=== PATIENT | female | born 2000 | race Two or more races ===

== ENCOUNTER 2025-05-17 09:49 | Outpatient (AMB) | payer BC, SELFPAY ==
--- NOTE | 2025-05-17 10:14 | OBCLNT_ITS ---
Vital Signs 05/17/25 10:32 Height 1.6 m Height Method Measured Weight 74.503 kg Weight Measurement Method Standing Scale BMI 29.0 BP 136/84 H Blood Pressure Source Automatic Cuff Blood Pressure Location Right Upper Arm Position Sitting Respiration 17 Pulse 96 Pulse Source Monitor Temp 97.5 F Temp Source Temporal Artery Scan Pulse Oximetry (%) 98 Oxygen Delivery Method Room Air Allergies/Home Meds Allergies & Medications Allergies No Known Allergies Allergy (Verified 05/17/25 10:33) Medication Reconciliation vits no.126-ferrous fum 28 mg iron-folic acid 800 mcg tablet (Classic ) tab PO 05/17/25 [History Confirmed 05/17/25] Intake Visit Data Collection New Patient or Established: New Patient not seen in past 3 years at [facility] (considered New) Reason for Visit:: BEATRIZ Consent obtained for Telemed Visit: No Seen by Clinical Staff ONLY (RN/MA): No Intake Man Required: No Do You Feel Safe at Home: Yes Authorities Contacted: N/A PCP or OBGYN visit in last 3 months: No Hx Now: Yes Are you currently on any form of Control: No Last menstrual period: 03/05/25 Pain Present Currently: No Pain Scale Used: Magana-Mcdowell/Numerical Pain scale:: 0 Smoking Status Smoking Status: Never smoker Questionnaires Covid-19 Vaccine Questionnaire Has patient been vacinated for Covid-19 Have you been vacinated for Covid-19: No PHQ-9 PHQ-2 Over the last 2 weeks, how often have you been bothered by any of the following problems? 1. Little interest or pleasure in doing things: not at all 2. Feeling down, depressed, or hopeless: not at all Total score: 0 PHQ-9 3. Trouble falling or staying asleep, or sleeping too much: Not at all 4. Feeling tired or having little energy: Not at all 5. Poor appetite or overeating: Not at all 6. Feeling bad about yourself - or that you are a failure or have let yourself or your family down: Not at all 7. Trouble concentrating on things, such as reading the newspaper or watching television: Not at all 8. Moving or speaking so slowly that other people could have noticed? - Or the opposite - being so fidgety or restless that you have been moving around a lot more than usual: not at all 9. Thoughts that you would be better off or of hurting yourself in some way: Not at all Total score: 0 If you checked off any problems, how difficult have these problems made it for you to do your work, take care of things at home, or get along with other people?: not difficult at all Source: Developed by Drs. Juan Chirinos, Ashley Thornton, Anjum Conner and colleagues, with an educational jenaro from [employer]. Social History Living Situation History Housing: House Tobacco History Smoking Status: Never smoker Alcohol History Alcohol Intake: Never Domestic Abuse History Do You Feel Safe at Home: Yes History of Present Illness HPI Narrative This is a 24-year-old 1 para 0 for OBI. Last menstrual period March 05, 2025. Estimated due date based on LMP is December 07, 2025. Patient denies any SAB complaints. She is very happy about the . She went to [facility] for her confirmation of . History of a breast lump that was removed June 05. The results were benign no other surgeries. She has a history of anxiety and she has not seen any behavioral health. No complaints at this time denies social habits. Drug screen was negative. Patient hepatitis B is negative. Her hepatitis C is nonreactive. RPR nonreactive. Rubella immune. O+, antibody screen negative, GC and Chlamydia were negative. She has a hemoglobin of 14 hematocrit of 43. Platelets are normal. Urine is negative. Her A1c was 5.1. Her hCG was 9000. 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 Last. March 05, 2025. This gives a due date of December 07, 2025. Patient works. History of a lumpectomy left breast that was benign. She denies any social habits. She has a history of anxiety and she is not on any medication. She denies any signs or symptoms of miscarriage. NIPT and carrier screen today. I will schedule her ultrasound for anatomy scan at [facility]. Discussed SAB precautions. And patient will come back in 4 weeks for OB check Menstrual History Menstrual reliability: definite Flow: normal Menstrual regularity: regular Monthly: Yes Age at menarche: 9 On control pills at conception: No Associated symptoms (LMP): Reports nausea and fatigue OB History : 1 Para: 0 Hx # Pregnancies: 0 Hx Total # of Abortions (Spontaneous & Elective): 0 # of Living Children: 0 Infection History & Risk Evaluation History of STDs: chlamydia HIV risk evaluation: low risk Patient or partner has history of Genital Herpes: No Genetic Screening & History Genetic Screening/Teratology Counseling - Includes patient, baby's father, or anyone in either family with: 1. Patient's age 35 years or older as of estimated date of delivery: No 2. Thalassemia (Northern Irish, Ethiopian, Mediterranean, or Background); MCV less than 80: No 3. Neural Tube Defect (Meningomyelocele, Spina Bifida, or Anencephaly): No 4. Congenital Heart Defect: No 5. Down Syndrome: No 6. Yo-Sachs (Ashkenazi Jehovah'S Witness, Cajun, Wolof Mozambican): No 7. Marcella Disease (Ashkenazi Jehovah'S Witness): No 8. Familial Dysautonomia (Ashkenazi Jehovah'S Witness): No 9. Sickle Cell Disease or Trait (): No 10. Hemophilia or other blood disorders: No 11. Muscular Dystrophy: No 12. Cystic Fibrosis: No 13. [place]'s Chorea: No 14. Mental Retardation/Autism: No 15. Other inherited genetic or chromosomal disorder: No 16. Maternal Metabolic Disorder (EG,TYPE 1 Diabetes, PKU): No 17. Patient or baby's father had a child with defects not listed above: No 18. Recurrent loss or a stillbirth: No 19. Medications (including supplements, vitamins, herbs or otc drugs)/illicit/recreational drugs/alcohol since last menstrual period: No 20. Any other: No Infection History 1. Live with someone with TB or exposed to TB: No 2. Rash or viral illness since last menstrual period: No 3. Hepatitis B,C: No 4. History of STD: chlamydia Other (see comments) Source: [employer] Review of Systems Review of Systems Systems Reviewed: All systems reviewed, normal except as documented Constitutional Constitutional: Reports fatigue Gastrointestinal Gastrointestinal: Reports nausea Endocrine Endocrine: Reports fatigue Exam General Limitations: no limitations General Appearance: alert, in no apparent distress, comfortable, cooperative, healthy appearing, well developed and well groomed Head Head exam: atraumatic, normocephalic and normal inspection Resp Respiratory exam: Present normal lung sounds bilaterally Card Cardiovascular exam: Present regular rate, normal rhythm and normal heart sounds Abdominal Abdominal exam: Present soft and normal bowel sounds Psych Psychiatric exam: Present normal affect and normal mood Office Procedures OB Clinic LOC & Office Proc's Nursing/Assessment Patient Status: Established Patient OB Clinic Nursing Assessment: Medication Reconciliation, Update PMH in EMR and Vital Signs OB Clinic Coordination of Care: Complex Care and Chronic Disease 1-5, Consent,records obtained, informed consent, Education Simp Pt/Fam and 4+ Authorizations needed Special Needs: Heart tones Established Patient Charge Established Patient Point Assignment: 130 Established Patient Point Charge: EP Level 4 (120-155) Assessment & Plan Diagnosis / Problem List (1) Encounter for supervision of normal first , first trimester: Status: Acute Plan Reviewed labs and dates with patient. Discussed SAB precautions. Continue vitamins. Schedule [facility] appointment for anatomy scan. And NIPT and carrier screen today. Return in 3 to 4 weeks OB check Additional Plan Follow Up: 4 Weeks (obc)
[2025-05-17 10:32] VITALS: BP 136/84; PULSE 96; RESP 17; TEMP 36.4; O2SAT 98; BMI 29.0
== END 2025-05-17 12:07 | disposition home or self-care (01) ==
LOC: HODSOBC 09:49
PROVIDERS: PCP Family Medicine; Referring Provider Family Medicine; Supervising Provider Advanced Practice Midwife; Visit Provider Advanced Practice Midwife
DX: Z34.01 Encounter for supervision of normal first pregnancy, first trimester (principal); Z3A.11 11 weeks gestation of pregnancy
CPT/HCPCS: 99214; G0463

== ENCOUNTER 2025-06-08 23:17 | Emergency (ER) | payer BC, SELFPAY ==
[2025-06-08 23:19] VITALS: BMI 27.8
[2025-06-09 00:37] VITALS: BP 130/84; PULSE 106; RESP 18; TEMP 37.1; O2SAT 97
--- NOTE | 2025-06-09 01:31 | PD.EDRME ---
Rapid Medical Screening Exam RME Arrival date/time: 06/08/25 23:17 Chief Complaint: Nausea/Vomiting/Diarrhea Time Seen by Provider: 06/09/25 01:04 Vital signs: Vital Signs Temperature 98.7 F 06/09/25 00:37 Pulse Rate 106 H 06/09/25 00:37 Respiratory Rate 18 06/09/25 00:37 Blood Pressure 130/84 06/09/25 00:37 Pulse Oximetry (%) 97 06/09/25 00:37 Oxygen Delivery Method Room Air 06/09/25 00:37 Vital signs reviewed by provider: Yes RME Narrative: Very pleasant 1 para 0, 24-year-old female presents to the ED with a complaint of nausea and vomiting and inability to keep anything down. She has had some ongoing nausea and vomiting however tonight she feels very dehydrated. She denies fever chills, upper respiratory complaints, pelvic cramping or bleeding, dysuria or frequency. I have ordered labs including lipase and urinalysis, IV fluids, and a dose of pyridoxine 25mg PO. I have greeted and performed a focused initial assessment of this patient. A comprehensive ED assessment and evaluation of the patient, analysis of all test results, and completion of the medical decision making process will be conducted by additional ED providers.
[2025-06-09] MEDS: SODIUM CHLORIDE 0.9% 1000 ML 1,000 ML 999 ML IV ×2 (01:43→03:40)
[2025-06-09 02:07] LABS: Basophils # (Auto) 0.1 Thou/mm3 (0.0-0.2); Basophils % (Auto) 1 % (0-2.5); Eosinophils # (Auto) 0.0 Thou/mm3 (0.0-0.5); Eosinophils % (Auto) 0 % (0-10); Hematocrit 41.6 % (36.0-46.0); Hemoglobin 14.5 g/dL (12.0-16.0); Immature Granulocytes Auto 0.06 Thou/mm3 (0.00-0.00); Lymphocytes # (Auto) 1.6 Thou/mm3 (1.0-4.8); Lymphocytes % (Auto) 13 % (10-50); Mean Corpuscular HGB Conc 34.9 g/dl (31.0-37.0); Mean Corpuscular Hemoglobin 29.1 pg (25.0-35.0); Mean Corpuscular Volume 84 fL (80-100); Monocytes # (Auto) 0.7 Thou/mm3 (0.0-0.8); Monocytes % (Auto) 6 % (0-12); Neutrophils # (Auto) 9.6 Thou/mm3 (1.8-7.7); Neutrophils % (Auto) 80 % (37-80); Nucleated Red Blood Cell # 0.00 Thou/mm3 (0.00-0.00); Nucleated Red Blood Cell % 0 /100 WBC (0); Platelet Count 275 Thou/mm3 (140-440); RDW Standard Deviation 41.5 fL (36.4-46.3); Red Blood Count 4.98 Miln/mm3 (4.00-5.20); White Blood Count 12.0 Thou/mm3 (3.6-11.0)
[2025-06-09 02:32] LABS: Alanine Aminotransferase 127 U/L (10-49); Albumin, Serum 5.0 gm/dL (3.5-5.0); Albumin/Globulin Ratio 1.9 (1.2-2.2); Alkaline Phosphatase 84 U/L (46-116); Anion Gap 16 (7-16); Aspartate Amino Transferase 94 U/L (0-34); BUN/Creatinine Ratio 9 Ratio (12-20); Bilirubin,Total 1.6 mg/dL (0.3-1.2); Blood Urea Nitrogen 6 mg/dL (9-23); Calcium 9.8 mg/dL (8.3-10.6); Calcium (Corrected) 9.8 mg/dL (8.5-10.1); Carbon Dioxide 18.6 mMol/L (20.0-31.0); Chloride 101 mMol/L (98-107); Creatinine (Component) 0.7 mg/dL (0.6-1.3); Estimated Creatinine Clearance 116.2 mL/min (>60); Globulin 2.7 gm/dL (2.3-3.5); Glucose 82 mg/dL (74-106); Lipase 30 U/L (12-53); Magnesium 1.7 mg/dL (1.6-2.6); Osmolality,Calculated 268 (275-295); Phosphorous 3.5 mg/dL (2.4-5.1); Potassium 3.6 mMol/L (3.4-5.1); Sodium 136 mMol/L (136-145); Total Protein 7.7 gm/dL (5.7-8.2); eGFR > 60 See Note
[2025-06-09] MEDS: PYRIDOXINE 50 MG TABLET 25 MG PO (02:44)
[2025-06-09 03:00] LABS: Collection Type, Urine Clean Catch
--- NOTE | 2025-06-09 03:13 | EDNOTE_ITS ---
Nausea/Vomit./Diarrhea-RME/HPI General Chief complaint: Nausea/Vomiting/Diarrhea Stated complaint: VOMITING Time Seen by Provider: 06/09/25 01:04 Arrival date/time: 06/08/25 23:17 RME / HPI RME / HPI Narrative: Very pleasant 1 para 0, 24-year-old female presents to the ED with a complaint of nausea and vomiting and inability to keep anything down. She has had some ongoing nausea and vomiting however tonight she feels very dehydrated. She denies fever chills, upper respiratory complaints, pelvic cramping or bleeding, dysuria or frequency. I have ordered labs including lipase and urinalysis, IV fluids, and a dose of pyridoxine 25mg PO. I have greeted and performed a focused initial assessment of this patient. A comprehensive ED assessment and evaluation of the patient, analysis of all test results, and completion of the medical decision making process will be conducted by additional ED providers. Dr. Nguyen?s Main ED Evaluation: 24yo female EGA 14 weeks presenting with persistent N/V throughout the week, 5-10 episodes/day, No hematemesis or diarrhea. Patient reports epigastric discomfort radiating to the neck. No fever, chills, urgency, or dysuria. No vaginal bleeding or connor of fluid. Baseline frequency. PMH unremarkable. PSH includes lumpectomy. Social history is unremarkable. Allergy to penicillin. Related Data Home Medications ?Medication ?Instructions ?Recorded ?Confirmed vits no.126-ferrous fum tab PO 05/17/2505/17 28 mg iron-folic acid 800 mcg tablet (Classic ) Previous Rx's ?Medication ?Instructions ?Recorded famotidine 40 mg tablet (Pepcid) 40 mg PO QDAY #30 tab s 06/09/25 famotidine 40 mg tablet (Pepcid) 40 mg PO QDAY #30 tab s 06/09/25 metoclopramide HCl 10 mg tablet 10 mg PO Q6H PRN nause a and 06/09/25 (Reglan) vomiting #20 tabs nitrofurantoin 100 mg PO Q12H 5 days #10 ca ps 06/09/25 monohydrate/macrocrystals 100 mg capsule (Macrobid) nitrofurantoin 100 mg PO Q12H 5 days #10 ca ps 06/09/25 monohydrate/macrocrystals 100 mg capsule (Macrobid) promethazine 12.5 mg tablet 12.5 mg PO TID #20 tabs Allergies Allergy/AdvReac Type Severity Reaction Status Date / Time No Known Allergies Allergy Verified 06/08/25 23:18 Review of Systems Review of Systems Systems Reviewed: All systems reviewed, normal except as documented Past Medical History Past Medical History NEUROLOGIC: Negative Neurological Disorders or Seizures CARDIAC: Negative Cardiac Disorders, Congestive Heart Failure, Edema or Cellu litis (SCRATCHES CARLOS ALBERTO LEGS DUE TO DOGS STATED BY PT (HEALING)) RESPIRATORY: Negative Chronic Obstructive Pulmonary Disease (COPD) GASTROINTESTINAL: Negative Gastrointestinal Disorders or Hepatitis GENITOURINARY: Negative Genitourinary Disorders or Renal Disease REPRODUCTIVE: Negative Pelvic Inflammatory Disease or Previous Pregnancies MUSCULOSKELETAL: Negative Musculoskeletal Disorders ENDOCRINE: Negative Endocrine Disorders, Diabetes Mellitus Type 1 or Diabetes Mellitus Type 2 HEMATOLOGIC: Negative Blood Disorders PSYCHO/SOCIAL: Positive Depression (does not take any meds) and Anxiety OTHER HISTORY: Negative Hospitalization, Autoimmune Disease, Shingles, Falls, Blood Transfusions, Blood Transfusion Reaction, Anesthesia Reactions, Chemotherapy, Radiation Therapy, MRSA, VRSA, Chicken Pox, Measles, Mumps, Clostridium Difficile or Cancer Family History FAMILY HISTORY: Positive Family Cardiac Disorders (father (htn)) and Family Surgery (FATHER,mother); Negative Family Psychiatric Problems, Family Respiratory Disorders, Family Gastrointestinal Problems, Family Cancer or Family Anesthesia Reaction Surgical History SURGICAL: Negative Cardiac Surgery, Pacemaker, Endocrine Surgery, Ear Surgery, Abdominal Surgery, Nephrectomy, Neurologic Surgery, Brain Shunt or Mastectomy Social History SMOKING STATUS: Never smoker ED Exam Narrative Physical exam: GENERAL APPEARANCE: alert and oriented x 4, well-developed, well-nourished, nontoxic, resting comfortably, no acute distress VITALS: All vitals were reviewed and the pulse ox is 97% on room air, which is normal according to my interpretation. HEENT: Normocephalic, atraumatic; pupils equal, round, reactive to light; EOMI; mucous membranes pink, moist; oropharynx clear NECK: Supple LUNGS: CTABL; no wheezes, no rales, no rhonchi HEART: Regular rate, regular rhythm; normal S1, S2; no murmurs ABDOMEN: non distended; normal BS; soft, no tenderness, no guarding, no rebound; no masses, no organomegaly, no hernia BACK: no CVA tenderness EXTREMITIES: atraumatic; no edema NEUROLOGIC: awake; alert and oriented x4; cranial nerves II-XII grossly intact; no focal sensory or motor deficits PSYCHIATRIC: appropriate mood and affect SKIN: warm, dry, slightly pale; no rashes Course Quality Measures none Orders Category Date Time Status IV [Insert IV] NOW Care 06/09/25 01:17 Completed CBC Stat Lab 06/09/25 01:26 Completed Comprehensive Metabolic Panel Stat Lab 06/09/25 01:26 Completed Drug Screen,Urine Stat Lab 06/09/25 02:52 Completed Ketone [Beta Hydroxybutyrate] Stat Lab 06/09/25 03:35 Completed Lipase Stat Lab 06/09/25 01:26 Completed Magnesium Stat Lab 06/09/25 01:26 Completed Phosphorous Stat Lab 06/09/25 01:26 Completed Urinalysis, C/S if Indicated Stat Lab 06/09/25 02:52 Completed Urine Culture Stat Lab 06/09/25 02:52 Received Famotidine Inj [Pepcid Inj] Med 06/09/25 03:17 Discontinued 20 mg IVP X1 ONE Metoclopramide Inj [Reglan Inj] Med 06/09/25 03:17 Discontinued 10 mg IVP X1 ONE Pyridoxine [Vitamin B-6] Med 06/09/25 01:28 Discontinued 25 mg PO X1 ONE Sodium Chloride 0.9% 1000 ml [Ns] 1,000 ml Med 06/09/25 01:15 Discontinued IV 999 mls/hr Sodium Chloride 0.9% 1000 ml [Ns] 1,000 ml Med 06/09/25 03:18 Discontinued IV 999 mls/hr cefTRIAXone/D5w 1gm IV premix [Rocephin/D5w 1gm IV Med 06/09/25 04:58 Discontinued premix] 1 gm in 50 ml IV X1 Vital Signs Vital signs: Vital Signs Temperature 98.7 F 06/09/25 00:37 Pulse Rate 106 H 06/09/25 00:37 Respiratory Rate 18 06/09/25 00:37 Blood Pressure 130/84 06/09/25 00:37 Pulse Oximetry (%) 97 06/09/25 00:37 Oxygen Delivery Method Room Air 06/09/25 00:37 Nausea/Vomiting/Diarrhea MDM Narrative MDM Narrative:: Scribe Attestation: 06/09/25 - Starla Hernandez am scribing for and in the presence of Dr. Nguyen. 24yo female EGA 14 weeks presenting with persistent N/V throughout the week, 5-10 episodes/day, No hematemesis or diarrhea. Patient reports epigastric discomfort radiating to the neck. Please see PE findings. Lab markers demonstrate mild acidosis with CO2 of 18, low normal K 3.6, no signs of renal insufficiency, mildly elevated LFTs, Beta Hydroxybutyrate at 3.1, UA demonstrates evidence of infection. Patient aggressively hydrated to correct volume depletion and treated with PPI and antiemetics. Also given Rocephin for UTI. On serial evaluation, patient reports overall improvement and has remained stable. Will treat for hyperemesis gravidarum, give antibiotics for UTI, and recommend for close [facility] follow-up. Patient data External records reviewed:: [facility] previous records (Per chart review, patient has no previous ED visits or admissions to this facility.) Clinical information provided by:: patient Social determinants that could affect healthcare access:: none Patient has the following chronic illnesses:: none How is presenting disease/condition affected by chronic disease/condition?: no chronic disease Evaluation data The following diagnostics were reviewed and interpreted by me:: lab results Lab and/or radiology exams considered but not ordered:: none Interpretation Summary: See MDM. Medications / Prescriptions Medications / Prescriptions considered but not ordered:: none Medication administrations:: Medication Administration History Discontinued Medications Famotidine (Famotidine Inj 10 Mg/Ml Vial 2 Ml) 20 mg IVP X1 ONE Stop: 06/09/25 03:18 Last Admin: 06/09/25 03:43 Dose: 20 mg Documented By: CVL Sodium Chloride (Ns) 1,000 mls @ 999 mls/hr IV .Q1H1M ONE Stop: 06/09/25 02:15 Last Infusion: 06/09/25 02:25 Dose: Infused Documented By: Admin: 06/09/25 01:43 Dose: 999 mls/hr Documented By: CVL Sodium Chloride (Ns) 1,000 mls @ 999 mls/hr IV .Q1H1M ONE Stop: 06/09/25 04:18 Last Infusion: 06/09/25 04:27 Dose: Infused Documented By: Admin: 06/09/25 03:40 Dose: 999 mls/hr Documented By: CVL Ceftriaxone Sodium/Dextrose (Rocephin/D5w 1gm Iv Premix) 1 gm in 50 mls @ 100 mls/hr IV X1 ONE Stop: 06/09/25 05:27 Last Infusion: 06/09/25 05:19 Dose: Infused Documented By: Admin: 06/09/25 05:04 Dose: 100 mls/hr Documented By: CVL Metoclopramide HCl (Metoclopramide Inj 5 Mg/Ml Vial 2 Ml) 10 mg IVP X1 ONE; Protocol Stop: 06/09/25 03:18 Last Admin: 06/09/25 03:42 Dose: 10 mg Documented By: CVL Pyridoxine HCl (Pyridoxine 50 Mg Tablet) 25 mg PO X1 ONE Stop: 06/09/25 01:29 Last Admin: 06/09/25 02:44 Dose: 25 mg Documented By: CVL see above Consultations Consultation(s) initiated? (list below): No Diagnosis Nausea Differential Diagnosis: dehydration and other (hyperemesis gravidarum, vomiting in , electrolyte abnormality) Most likely diagnosis given after review of the tests above:: hyperemesis gravidarum, UTI Admission Indicated Admission indicated?: not indicated Admission Request Was there a request for admission?: No Disposition Plan Disposition Plan: Discharge Discharge Attestation Discharge Attestation: The patient and all family members were given an opportunity to ask questions and understood the discharge instructions. Discharge instructions specifically effects, indications for sooner follow up or return to the emergency department, and the expected course of current diagnosis. Patient condition: Stable Discharge Plan Plan Patient Disposition: HOME (Self Care) Prescriptions/Referrals Prescriptions/Med Rec: New nitrofurantoin monohyd/m-cryst [Macrobid] 100 mg capsule 100 mg PO Q12H 5 Days Qty: 10 0RF Rx Instructions: must administer with a meal/food metoclopramide HCl [Reglan] 10 mg tablet 10 mg PO Q6H PRN (Reason: nausea and vomiting) Qty: 20 0RF famotidine [Pepcid] 40 mg tablet 40 mg PO QDAY Qty: 30 0RF famotidine [Pepcid] 40 mg tablet 40 mg PO QDAY Qty: 30 0RF promethazine 12.5 mg tablet 12.5 mg PO TID Qty: 20 0RF nitrofurantoin monohyd/m-cryst [Macrobid] 100 mg capsule 100 mg PO Q12H 5 Days Qty: 10 0RF Rx Instructions: must administer with a meal/food No Action Classic 28 mg iron- 800 mcg tablet PO Referrals: Dena Arteaga PA-C [Primary Care Provider] - In 1 week Problem List Clinical Impression: Hyperemesis gravidarum before end of 22 week gestation with dehydration Patient/Caregiver Discharge Instructions Discharge Activity: activity as tolerated Education Materials: ED Hyperemesis Gravidarum Additional Instructions: Maintain clear liquid diet x 24 to 48 hours. Medication as directed. Follow-up with [facility] physician within 3 to 5 days return if worsening. Print Language: Turkish Stand Alone Forms: Shruthi Award Info., Patient Portal Info Letter
[2025-06-09 03:16] LABS: Amphetamine/Methamp Scrn,U Negative (Negative); Barbiturate Screen,Urine Negative (Negative); Benzodiazepines Screen,Urine Negative (Negative); Benzoylecgonine Screen, Ur Negative (Negative); Fentanyl Screen,Urine Negative (Negative); Opiate Screen,Urine Negative (Negative); THC Screen,Urine Negative (Negative)
[2025-06-09] MEDS: METOCLOPRAMIDE INJ 5 MG/ML VIAL 2 ML 10 MG IVP (03:42)
[2025-06-09] MEDS: FAMOTIDINE INJ 10 MG/ML VIAL 2 ML 20 MG IVP (03:43)
[2025-06-09 03:46] LABS: Beta Hydroxybutyrate 3.1 mmol/L (<0.6)
[2025-06-09 03:51] LABS: Amorphous Crystals,Urine Present (Absent); Bacteria,Urine 1+; Bilirubin,Urine 1+ (Negative); Blood,Urine Negative (Negative); Clarity,Urine Turbid (Clear/Hazy); Color,Urine Yellow (Lt Yel-Yel); Glucose, Urine Negative (Negative); Ketones,Urine 4+ (Negative); Leukocyte Esterase,Urine Positive (Negative); Nitrite,Urine Negative (Negative); PH,Urine 6.0 (5.0-7.0); Protein,Urine 1+ (Neg - Trace); RBC,Urine < 1 /hpf (0-3); Specific Gravity,Urine 1.027 (1.001-1.035); Squamous Epithelial Cell,Urine 7 /hpf (0-5); Urobilinogen,Urine 6.0 mg/dL (0.0-1.0); WBC,Urine 9 /hpf (0-5)
[2025-06-09 03:52] LABS: Culture Indicated,Urine Yes
[2025-06-09] MEDS: cefTRIAXone/D5w 1gm IV premix 1 GM/50 ML BAG IV (05:04)
[2025-06-09 05:22] VITALS: RESP 16
== END 2025-06-09 05:23 | disposition home or self-care (01) ==
PROVIDERS: Physician Assistant; Emergency Provider Emergency Medicine; PCP Physician Assistant
DX: O21.0 Mild hyperemesis gravidarum (principal); Z3A.22 22 weeks gestation of pregnancy; O99.282 Endocrine, nutritional and metabolic diseases complicating pregnancy, second trimester; E86.0 Dehydration
CPT/HCPCS: 36415; 80053; 80307; 81001; 82010; 83690; 83735; 84100; 85025; 87086; 96361; 96374; 96375; 99283; J0696; J2765; J3490; J7030; A9270

== ENCOUNTER 2025-06-14 13:06 | Outpatient (AMB) | payer BC, SELFPAY ==
[2025-06-14 13:26] VITALS: BP 123/82; PULSE 110; RESP 17; TEMP 36.5; O2SAT 98; BMI 28.8
--- NOTE | 2025-06-14 13:26 | OBCLNT_ITS ---
Vital Signs 06/14/25 13:26 Height 1.6 m Height Method Measured Weight 73.652 kg Weight Measurement Method Standing Scale BMI 28.8 BP 123/82 Blood Pressure Source Automatic Cuff Blood Pressure Location Right Upper Arm Position Sitting Respiration 17 Pulse 110 H Pulse Source Monitor Temp 97.7 F Temp Source Temporal Artery Scan Pulse Oximetry (%) 98 Oxygen Delivery Method Room Air Allergies/Home Meds Allergies & Medications Allergies No Known Allergies Allergy (Verified 06/14/25 13:26) Medication Reconciliation vits no.126-ferrous fum 28 mg iron-folic acid 800 mcg tablet (Classic ) tab PO 05/17/25 [History Confirmed 06/14/25] famotidine 40 mg tablet (Pepcid) 40 mg PO QDAY #30 tabs 06/09/25 [Rx Confirmed 06/14/25] famotidine 40 mg tablet (Pepcid) 40 mg PO QDAY #30 tabs 06/09/25 [Rx Confirmed 06/14/25] metoclopramide HCl 10 mg tablet (Reglan) 10 mg PO Q6H PRN nausea and vomiting #20 tabs 06/09/25 [Rx Confirmed 06/14/25] promethazine 12.5 mg tablet 12.5 mg PO TID #20 tabs 06/09/25 [Rx Confirmed 06/14/25] ondansetron HCl 4 mg tablet 4 mg PO Q8H PRN nausea and vomiting #60 tabs 06/14/25 [Rx] Intake Visit Data Collection New Patient or Established: Established Patient (seen at [facility] within 3 years) Reason for Visit:: [facility] Consent obtained for Telemed Visit: No Seen by Clinical Staff ONLY (RN/MA): No Internet Sales Associate Required: No Do You Feel Safe at Home: Yes Authorities Contacted: N/A PCP or OBGYN visit in last 3 months: Yes Date of Last PCP or OBGYN visit: 06/09/25 Hx Now: Yes Are you currently on any form of Control: No Pain Present Currently: No Pain Scale Used: Magana-Mcdowell/Numerical Pain scale:: 0 Smoking Status Smoking Status: Never smoker Questionnaires Covid-19 Vaccine Questionnaire Has patient been vacinated for Covid-19 Have you been vacinated for Covid-19: No PHQ-9 PHQ-2 Over the last 2 weeks, how often have you been bothered by any of the following problems? 1. Little interest or pleasure in doing things: not at all PHQ-9 8. Moving or speaking so slowly that other people could have noticed? - Or the opposite - being so fidgety or restless that you have been moving around a lot more than usual: not at all Source: Developed by Drs. Juan Chirinos, Ashley Thornton, Anjum Conner and colleagues, with an educational jenaro from [employer]. 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 Last. March 05, 2025. This gives a due date of December 07, 2025. Patient works. History of a lumpectomy left breast that was benign. She denies any social habits. She has a history of anxiety and she is not on any medication. She denies any signs or symptoms of miscarriage. NIPT and carrier screen today. I will schedule her ultrasound for anatomy scan at [facility]. Discussed SAB precautions. And patient will come back in 4 weeks for OB check 06/14/25 -?-?-?-?-?-?-?-?-?-?-?-?- 15w 0d 73.652 kg 123/82 absent unknown 15 155 absent Complains of increased nausea and vomiting. Denies vaginal bleeding. Denies contractions. Denies leaking. Light movement. process sono referral, sab precaution, comfort measure for nausea, zofran 4mg tid. discuss sab precaution, rtc 4 week GREGORY Calculator Estimated Delivery Date Method Current WG Current Estimate 12/06/25 LMP (Certain) 15w 0d Notes Visit Date: 06/14/25 Last Updated by: Betty Garrison CNM NIPT/Carrier screen-, A1: 5.1 Visit Date: 05/17/25 Last Updated by: Betty Garrison CNM 05/17/25: 24 yo . lmp 03/05/25. EDC 12/07/25, O+/abs-, rpr;;nr, rub imm, hbsag-,hiv-,hc-, GC/CT-, Office Procedures OB Clinic LOC & Office Proc's Nursing/Assessment Patient Status: Established Patient OB Clinic Nursing Assessment: Medication Reconciliation, Update PMH in EMR and Vital Signs OB Clinic Coordination of Care: Complex Care and Chronic Disease 1-5, Consent,records obtained, informed consent, Education Simp Pt/Fam, 4+ Authorizations needed, Lab and Imaging orders and Results/Orders obtained Special Needs: Heart tones Established Patient Charge Established Patient Point Assignment: 150 Established Patient Point Charge: EP Level 4 (120-155) Assessment & Plan Diagnosis / Problem List (1) Encounter for supervision of high risk in second trimester, antepartum: Status: Acute Plan Zofran 0.4 3 times daily. Discussed comfort measures for nausea and vomiting. Reviewed labs. Process maternal- medicine referral. Discussed SAB precautions. Return in 4 weeks for recheck Additional Plan Follow Up: 4 Weeks (obc and AFP)
== END 2025-06-14 14:09 | disposition home or self-care (01) ==
LOC: HODSOBC 13:06
PROVIDERS: PCP Family Medicine; Referring Provider Family Medicine; Supervising Provider Advanced Practice Midwife; Visit Provider Advanced Practice Midwife
DX: O09.892 Supervision of other high risk pregnancies, second trimester (principal); Z3A.15 15 weeks gestation of pregnancy; O21.9 Vomiting of pregnancy, unspecified
CPT/HCPCS: 99214; G0463

== ENCOUNTER 2025-06-20 22:53 | Emergency (ER) | payer BC, SELFPAY ==
[2025-06-20 22:54] VITALS: BMI 28.3
[2025-06-20 23:10] VITALS: BP 134/82; PULSE 98; RESP 18; TEMP 37; O2SAT 97
--- NOTE | 2025-06-20 23:15 | XR_ITS ---
Examination: Complete OB ultrasound, greater than 14 weeks, transabdominal Date and time of exam: June 20, 2025, 11:41 PM INDICATION: Pelvic pain beginning 2 days ago Technique: Obstetrical ultrasound images less than 14 weeks performed via transabdominal imaging Findings: A normal shaped single intrauterine gestation is present in the uterus. presentation breech Cardiac motion 150 BPM Placenta anterior grade 1 Umbilical cord insertion seen. Amniotic fluid index 6.9 cm Cervix 6.0 cm Ovaries are obscured by the uterus Ultrasonographic survey of visible and placental structures unremarkable. Amniotic fluid volume appears appropriate for this estimated gestational age. Estimated gestational age 15 weeks 5 days. Estimated weight 129.3 g Impression : Viable intrauterine gestation breech presentation
[2025-06-20 23:39] LABS: Basophils # (Auto) 0.0 Thou/mm3 (0.0-0.2); Basophils % (Auto) 0 % (0-2.5); Eosinophils # (Auto) 0.0 Thou/mm3 (0.0-0.5); Eosinophils % (Auto) 0 % (0-10); Hematocrit 37.3 % (36.0-46.0); Hemoglobin 12.8 g/dL (12.0-16.0); Immature Granulocytes Auto 0.02 Thou/mm3 (0.00-0.00); Lymphocytes # (Auto) 1.5 Thou/mm3 (1.0-4.8); Lymphocytes % (Auto) 14 % (10-50); Mean Corpuscular HGB Conc 34.3 g/dl (31.0-37.0); Mean Corpuscular Hemoglobin 28.8 pg (25.0-35.0); Mean Corpuscular Volume 84 fL (80-100); Monocytes # (Auto) 0.7 Thou/mm3 (0.0-0.8); Monocytes % (Auto) 6 % (0-12); Neutrophils # (Auto) 8.8 Thou/mm3 (1.8-7.7); Neutrophils % (Auto) 80 % (37-80); Nucleated Red Blood Cell # 0.00 Thou/mm3 (0.00-0.00); Nucleated Red Blood Cell % 0 /100 WBC (0); Platelet Count 234 Thou/mm3 (140-440); RDW Standard Deviation 42.1 fL (36.4-46.3); Red Blood Count 4.45 Miln/mm3 (4.00-5.20); White Blood Count 11.0 Thou/mm3 (3.6-11.0)
[2025-06-21 00:07] LABS: Alanine Aminotransferase 95 U/L (10-49); Albumin, Serum 4.4 gm/dL (3.5-5.0); Albumin/Globulin Ratio 1.8 (1.2-2.2); Alkaline Phosphatase 70 U/L (46-116); Anion Gap 12 (7-16); Aspartate Amino Transferase 44 U/L (0-34); BUN/Creatinine Ratio 8 Ratio (12-20); Bilirubin,Total 0.5 mg/dL (0.3-1.2); Blood Urea Nitrogen < 5 mg/dL (9-23); Calcium 10.1 mg/dL (8.3-10.6); Calcium (Corrected) 10.1 mg/dL (8.5-10.1); Carbon Dioxide 21.7 mMol/L (20.0-31.0); Chloride 103 mMol/L (98-107); Creatinine (Component) 0.6 mg/dL (0.6-1.3); Estimated Creatinine Clearance 136.8 mL/min (>60); Globulin 2.4 gm/dL (2.3-3.5); Glucose 90 mg/dL (74-106); Osmolality,Calculated 271 (275-295); Potassium 3.9 mMol/L (3.4-5.1); Sodium 137 mMol/L (136-145); Total Protein 6.8 gm/dL (5.7-8.2); eGFR > 60 See Note
[2025-06-21] MEDS: SODIUM CHLORIDE 0.9% 1000 ML 1,000 ML 999 ML IV (00:21)
[2025-06-21] MEDS: ONDANSETRON INJ 2 MG/ML INJ 2 ML 4 MG IVP (00:21)
[2025-06-21 00:43] LABS: Beta HCG,Quantitative 94383 mIU/mL (<5.0)
[2025-06-21 00:53] LABS: Collection Type, Urine Voided; RBC,Urine 0 /hpf (0-3)
[2025-06-21 00:59] LABS: Amorphous Crystals,Urine Present (Absent); Bacteria,Urine Rare; Bilirubin,Urine Negative (Negative); Blood,Urine Negative (Negative); Clarity,Urine Turbid (Clear/Hazy); Color,Urine Yellow (Lt Yel-Yel); Glucose, Urine Negative (Negative); Ketones,Urine 4+ (Negative); Leukocyte Esterase,Urine Positive (Negative); Nitrite,Urine Negative (Negative); PH,Urine 6.0 (5.0-7.0); Protein,Urine 1+ (Neg - Trace); Specific Gravity,Urine 1.034 (1.001-1.035); Squamous Epithelial Cell,Urine 4 /hpf (0-5); Urobilinogen,Urine 2.0 mg/dL (0.0-1.0); WBC,Urine 13 /hpf (0-5)
--- NOTE | 2025-06-21 01:09 | PRELIM_ITS ---
Obstetric ultrasound. June 20, 2025 2341 hours Clinical history: vaginal bleeding Comparison: No prior study is available for comparison. Findings: There is an gravid uterus measuring 16.3 x 8.0 x 11.0 cm with a live fetus in breech presentation of mean gestational age 15 weeks and 5 days (by biometry). cardiac activity is present at a heart rate of 150 beats per minute. The placenta is anterior in location, maturity grade I. There is no evidence of placenta previa or retroplacental hemorrhage. Amniotic fluid is adequate (SDVP = 6.9 cm). Estimated weight is 129 grams+/- 19 grams. Estimated due date by ultrasound is 12/07/2025. The internal cervical os is closed and the cervical length measures 5.9 cm. Both ovaries are not visualized. Impression: Gravid uterus with a single live fetus in breech presentation of mean gestational age 15 weeks 5 days. Other findings as described above. Report Electronically Signed By: Argenis Newsome 06/21/2025 1:08:44 AM [EST]
--- NOTE | 2025-06-21 01:27 | PD.EDPREG ---
ED OB Contraction Preg RMI/HPI General Chief complaint: Nausea/Vomiting/Diarrhea Stated complaint: VOMITING, 15 WEEKS Time Seen by Provider: 06/20/25 23:13 Source: patient Arrival date/time: 06/20/25 22:53 This is a case of 24-year-old female with no medical history came in in the emergency room due to vomiting 6 times since last night with no abdominal pain no vaginal bleeding no fever no chills no vaginal discharge no urinary symptoms patient is 15 weeks 1 para 0 no checkup. But taking checkup daily persistence of the symptoms this patient decided to start consult here in the emergency room Limitations: no limitations Related Data Home Medications ?Medication ?Instructions ?Recorded ?Confirmed vits no.126-ferrous fum tab PO 05/17/25 06/14/25 28 mg iron-folic acid 800 mcg tablet (Classic ) Previous Rx's ?Medication ?Instructions ?Recorded famotidine 40 mg tablet (Pepcid) 40 mg PO QDAY #30 tabs 06/09/25 famotidine 40 mg tablet (Pepcid) 40 mg PO QDAY #30 tabs 06/09/25 metoclopramide HCl 10 mg tablet 10 mg PO Q6H PRN nausea and 06/09/25 (Reglan) vomiting #20 tabs promethazine 12.5 mg tablet 12.5 mg PO TID #20 tabs 06/09/25 ondansetron HCl 4 mg tablet 4 mg PO Q8H PRN nausea and 06/14/25 vomiting #60 tabs nitrofurantoin 100 mg PO BID 10 days #20 caps 06/21/25 monohydrate/macrocrystals 100 mg capsule (Macrobid) ondansetron 4 mg disintegrating 4 mg PO Q8H PRN nausea and 06/21/25 tablet vomiting #6 tabs Allergies Allergy/AdvReac Type Severity Reaction Status Date / Time Penicillins Allergy Hives Verified 06/20/25 22:54 Review of Systems Review of Systems Systems Reviewed: All systems reviewed, normal except as documented Constitutional Constitutional: Reports system reviewed and no additional complaints, except as documented, Reports as per HPI, Denies chills and Denies fever(s) Cardiovascular Cardiovascular: Reports system reviewed and no additional complaints, except as documented, Reports as per HPI, Denies chest pain and Denies dyspnea Respiratory Respiratory: Reports system reviewed and no additional complaints, except as documented, Denies chest congestion, Denies cough and Denies dyspnea Gastrointestinal Gastrointestinal: Reports system reviewed and no additional complaints, except as documented, Reports as per HPI, Denies abdominal pain, Denies constipation, Denies diarrhea, Reports nausea and Reports vomiting Genitourinary Genitourinary: Reports system reviewed and no additional complaints, except as documented, Denies abnormal menses, Denies abnormal vaginal bleeding, Denies hematuria, Denies menorrhagia, Denies nocturia, Denies pelvic pain, Denies urinary frequency, Denies urinary incontinence, Denies urinary hesitancy and Denies urinary urgency Neurologic Neurologic: Reports system reviewed and no additional complaints, except as documented and Reports as per HPI Past Medical History Past Medical History NEUROLOGIC: Negative Neurological Disorders or Seizures CARDIAC: Negative Cardiac Disorders, Congestive Heart Failure, Edema or Cellulitis (SCRATCHES CARLOS ALBERTO LEGS DUE TO DOGS STATED BY PT (HEALING)) RESPIRATORY: Negative Chronic Obstructive Pulmonary Disease (COPD) GASTROINTESTINAL: Negative Gastrointestinal Disorders or Hepatitis GENITOURINARY: Negative Genitourinary Disorders or Renal Disease REPRODUCTIVE: Negative Pelvic Inflammatory Disease or Previous Pregnancies MUSCULOSKELETAL: Negative Musculoskeletal Disorders ENDOCRINE: Negative Endocrine Disorders, Diabetes Mellitus Type 1 or Diabetes Mellitus Type 2 HEMATOLOGIC: Negative Blood Disorders PSYCHO/SOCIAL: Positive Depression (does not take any meds) and Anxiety OTHER HISTORY: Negative Hospitalization, Autoimmune Disease, Shingles, Falls, Blood Transfusions, Blood Transfusion Reaction, Anesthesia Reactions, Chemotherapy, Radiation Therapy, MRSA, VRSA, Chicken Pox, Measles, Mumps, Clostridium Difficile or Cancer Family History FAMILY HISTORY: Positive Family Cardiac Disorders (father (htn)) and Family Surgery (FATHER,mother); Negative Family Psychiatric Problems, Family Respiratory Disorders, Family Gastrointestinal Problems, Family Cancer or Family Anesthesia Reaction Surgical History SURGICAL: Negative Cardiac Surgery, Pacemaker, Endocrine Surgery, Ear Surgery, Abdominal Surgery, Nephrectomy, Neurologic Surgery, Brain Shunt or Mastectomy Social History SMOKING STATUS: Never smoker ED Exam General Limitations: Present no limitations General appearance: Present alert, in no apparent distress and other (Patient is awake alert oriented not in distress nontoxic looking well-hydrated well-nourished) Head Head exam: Present atraumatic; Absent normocephalic or normal inspection Eye Eye exam: Present normal appearance, PERRL and EOMI ENT ENT exam: Present normal exam, normal oropharynx and mucous membranes moist Neck Neck exam: Present normal inspection, full ROM and trachea midline; Absent tenderness Chest Chest inspection: Present normal inspection and symmetric chest wall rise; Absent tenderness Respiratory Respiratory exam: Present normal lung sounds bilaterally; Absent respiratory distress, wheezes, stridor, accessory muscle use or prolonged expiratory phase Cardiovascular Cardiovascular exam: Present regular rate, normal rhythm and normal heart sounds; Absent bradycardia, tachycardia, irregular rhythm, systolic murmur or diastolic murmur Abdominal Exam Abdominal exam: Present soft, normal bowel sounds and other (Gravid uterus); Absent distention, tenderness, guarding, rebound, rigidity, diminished bowel sounds, hyperactive bowel sounds or hypoactive bowel sounds Extremities Exam Extremities exam: Present normal inspection and full ROM Back Exam Back exam: Present normal inspection and full ROM Neurological Exam Neurological exam: Present alert, oriented X3, CN II-XII intact, normal gait and reflexes normal; Absent motor sensory deficit Psychiatric Psychiatric exam: Present normal affect and normal mood Skin Skin exam: Present warm, dry, intact and normal color Course Quality Measures none Orders Category Date Time Status US OB <= 14 weeks fetus Stat Exams 06/20/25 23:15 Taken ABO/RH Type Stat Lab 06/20/25 23:22 Completed Beta HCG,Quantitative Stat Lab 06/20/25 23:22 Completed CBC Stat Lab 06/20/25 23:22 Completed CMP [Comprehensive Metabolic Panel] Stat Lab 06/20/25 23:22 Completed Urinalysis Stat Lab 06/21/25 00:14 Completed Ondansetron Inj [Zofran Inj] Med 06/20/25 23:15 Discontinued 4 mg IVP X1 ONE Sodium Chloride 0.9% 1000 ml [Ns] 1,000 ml Med 06/20/25 23:15 Discontinued IV 999 mls/hr Vital Signs Vital signs: Vital Signs Temperature 98.6 F 06/20/25 23:10 Pulse Rate 98 06/20/25 23:10 Respiratory Rate 18 06/20/25 23:10 Blood Pressure 134/82 H 06/20/25 23:10 Pulse Oximetry (%) 97 06/20/25 23:10 Oxygen Delivery Method Room Air 06/20/25 23:10 Patient oxygen saturation is 97% in room air OB/Uterine Contractions MDM Narrative MDM Narrative:: This is a case of 24-year-old female with no medical history came in in the emergency room due to vomiting 6 times since last night with no abdominal pain no vaginal bleeding no fever no chills no vaginal discharge no urinary symptoms patient is 15 weeks 1 para 0 no checkup. But taking checkup daily persistence of the symptoms this patient decided to start consult here in the emergency room physical examination patient is awake alert oriented not in distress nontoxic looking well-hydrated well-nourished excellent skin turgor lungs sound is clear no crackles no rales no retraction no stridor heart normal rate regular rhythm no murmur vital signs stable not tachycardic not tachypneic afebrile and nonhypoxic patient have gravid uterus soft normal active bowel sounds no guarding no rebound no rigidity no tenderness the rest of the physical examination and neurological exam is normal and unremarkable blood test showed no leukocytosis no anemia kidney and liver function is normal patient urinalysis showed WBC in the urine suggestive of urinary tract infection patient beta-hCG showed [id number] patient ultrasound showed a 15 weeks with heart tone 150 based on my physical examination and history patient symptoms suggestive of hyperemesis gravidarum patient was given a bolus of normal saline and Zofran which patient condition markedly improved still there is no abdominal pain abdominal exam still normal patient stopped vomiting no recurrence of the symptoms patient will be discharged with Macrobid which is safe for for to be taken for 10 days and Zofran only for 6 tablet for nausea vomiting she will continue to take multivitamins and increase fluid intake Pedialyte for every bouts of vomiting she will also see her OB tomorrow for reevaluation and further evaluation and treatment of hyperemesis gravidarum and check return for any worsening symptoms ER precaution was advised Patient was discharged with comfortable condition walking with stable gait. Patient verbalized no further complains explained diagnosis and answered patient question. Patient is comfortable with the proposed management plan including the need to follow up with his/her primary care physician and any specialist if applicable Discussed patient for any urgent condition or worsening sx, He/She needed to go to emergency room immediately or call 911. Patient acknowledge the responsibility to follow up as instructed and to monitor her/his symptoms. For any persistence of the symptoms for more than 3-5 days return precaution advised. Discussed the result of the test and was given printed discharge instruction Patient data External records reviewed:: [facility] previous records Clinical information provided by:: patient Social determinants that could affect healthcare access:: none Patient has the following chronic illnesses:: None How is presenting disease/condition affected by chronic disease/condition?: no chronic disease Evaluation data The following diagnostics were reviewed and interpreted by me:: lab results and radiology exam(s) Lab and/or radiology exams considered but not ordered:: Reviewed Interpretation Summary: Reviewed Medications / Prescriptions Medications or Prescriptions considered but not ordered:: Given Medication administrations:: Medication Administration History Discontinued Medications Sodium Chloride (Ns) 1,000 mls @ 999 mls/hr IV .Q1H1M ONE Stop: 06/21/25 00:15 Last Admin: 06/21/25 00:21 Dose: 999 mls/hr Documented By: TARYN Ondansetron HCl (Ondansetron Inj 2 Mg/Ml Inj 2 Ml) 4 mg IVP X1 ONE; Protocol Stop: 06/20/25 23:16 Last Admin: 06/21/25 00:21 Dose: 4 mg Documented By: TARYN Given Consultations Consultation(s) initiated? (list below): No Diagnosis OB Contractions Differential Diagnosis: other (Hyperemesis gravidarum urinary tract infection) Most likely diagnosis given after review of the tests above:: Hyperemesis gravidarum urinary tract infection Admission Indicated Admission indicated?: not indicated Explain why admission is indicated or not indicated:: Not indicated Admission Request Was there a request for admission?: No Admission Attestation Admission request attestation: Not indicated Disposition Plan Disposition Plan: Discharge Discharge Attestation Discharge Attestation: The patient and all family members were given an opportunity to ask questions and understood the discharge instructions. Discharge instructions specifically effects, indications for sooner follow up or return to the emergency department, and the expected course of current diagnosis. Patient condition: Stable Discharge Plan Plan Patient Disposition: HOME (Self Care) Patient condition on transfer: Stable Prescriptions/Referrals Prescriptions/Med Rec: New nitrofurantoin monohyd/m-cryst [Macrobid] 100 mg capsule 100 mg PO BID 10 Days Qty: 20 0RF Rx Instructions: must administer with a meal/food ondansetron 4 mg tablet,disintegrating 4 mg PO Q8H PRN (Reason: nausea and vomiting) Qty: 6 0RF No Action Classic 28 mg iron- 800 mcg tablet PO ondansetron HCl 4 mg tablet 4 mg PO Q8H PRN (Reason: nausea and vomiting) Qty: 60 3RF metoclopramide HCl [Reglan] 10 mg tablet 10 mg PO Q6H PRN (Reason: nausea and vomiting) Qty: 20 0RF famotidine [Pepcid] 40 mg tablet 40 mg PO QDAY Qty: 30 0RF famotidine [Pepcid] 40 mg tablet 40 mg PO QDAY Qty: 30 0RF promethazine 12.5 mg tablet 12.5 mg PO TID Qty: 20 0RF Referrals: Riki Song MD [Primary Care Provider] - In 1 week Problem List Clinical Impression: Hyperemesis gravidarum, Urinary tract infection during Patient/Caregiver Discharge Instructions Education Materials: Urinary Tract Infections in Women, ED Hyperemesis Gravidarum Additional Instructions: Follow-up with your primary care physician in 2 days for reevaluation worsening symptoms or any emergent concerns such as vaginal bleeding abdominal pain nausea vomiting fever chills return to the emergency room immediately or call 911 it is very important to 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 Hoffmann
[2025-06-21 01:28] VITALS: BP 128/76; PULSE 76; RESP 18; TEMP 36.7; O2SAT 98
== END 2025-06-21 01:31 | disposition home or self-care (01) ==
PROVIDERS: Nurse Practitioner Family; Emergency Provider Emergency Medicine; PCP Family Medicine
DX: O21.0 Mild hyperemesis gravidarum (principal); Z3A.15 15 weeks gestation of pregnancy; O23.42 Unspecified infection of urinary tract in pregnancy, second trimester; N39.0 Urinary tract infection, site not specified
CPT/HCPCS: 36415; 76801; 80053; 81001; 84702; 85025; 86900; 86901; 96361; 96374; 99283; J2405; J7030

== ENCOUNTER 2025-07-14 13:06 | Outpatient (AMB) | payer BC, SELFPAY ==
[2025-07-14 13:15] VITALS: BP 128/75; PULSE 99; RESP 18; TEMP 36.6; O2SAT 98; BMI 29.2
--- NOTE | 2025-07-14 13:15 | OBCLNT_ITS ---
Vital Signs 07/14/25 13:15 Height 1.6 m Height Method Stated Weight 74.956 kg Weight Measurement Method Standing Scale BMI 29.2 BP 128/75 Blood Pressure Source Automatic Cuff Blood Pressure Location Left Upper Arm Position Sitting Respiration 18 Pulse 99 Pulse Source Monitor Temp 98 F Temp Source Oral Pulse Oximetry (%) 98 Oxygen Delivery Method Room Air Allergies/Home Meds Allergies & Medications Allergies Penicillins Allergy (Verified 07/14/25 13:16) Hives Medication Reconciliation vits no.126-ferrous fum 28 mg iron-folic acid 800 mcg tablet (Classic ) tab PO 05/17/25 [History Confirmed 07/14/25] famotidine 40 mg tablet (Pepcid) 40 mg PO QDAY #30 tabs 06/09/25 [Rx Confirmed 07/14/25] famotidine 40 mg tablet (Pepcid) 40 mg PO QDAY #30 tabs 06/09/25 [Rx Confirmed 07/14/25] metoclopramide HCl 10 mg tablet (Reglan) 10 mg PO Q6H PRN nausea and vomiting #20 tabs 06/09/25 [Rx Confirmed 07/14/25] promethazine 12.5 mg tablet 12.5 mg PO TID #20 tabs 06/09/25 [Rx Confirmed 07/14/25] ondansetron HCl 4 mg tablet 4 mg PO Q8H PRN nausea and vomiting #60 tabs 06/14/25 [Rx Confirmed 07/14/25] ondansetron 4 mg disintegrating tablet 4 mg PO Q8H PRN nausea and vomiting #6 tabs 06/21/25 [Rx Confirmed 07/14/25] Intake Visit Data Collection New Patient or Established: Established Patient (seen at [facility] within 3 years) Reason for Visit:: CARE Seen by Clinical Staff ONLY (RN/MA): No 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 1. Little interest or pleasure in doing things: not at all 2. Feeling down, depressed, or hopeless: not at all Total score: 0 PHQ-9 3. Trouble falling or staying asleep, or sleeping too much: Not at all 4. Feeling tired or having little energy: Not at all 5. Poor appetite or overeating: Not at all 6. Feeling bad about yourself - or that you are a failure or have let yourself or your family down: Not at all 7. Trouble concentrating on things, such as reading the newspaper or watching television: Not at all 8. Moving or speaking so slowly that other people could have noticed? - Or the opposite - being so fidgety or restless that you have been moving around a lot more than usual: not at all 9. Thoughts that you would be better off or of hurting yourself in some way: Not at all Total score: 0 Source: Developed by Drs. Juan Chirinos, Ashley Thornton, Anjum Conner and colleagues, with an educational jenaro from [employer]. 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 Last. March 05, 2025. This gives a due date of December 07, 2025. Patient works. History of a lumpectomy left breast that was benign. She denies any social habits. She has a history of anxiety and she is not on any medication. She denies any signs or symptoms of miscarriage. NIPT and carrier screen today. I will schedule her ultrasound for anatomy scan at [facility]. Discussed SAB precautions. And patient will come back in 4 weeks for OB check 06/14/25 -?-?-?-?-?-?-?-?-?-?-?-?- 15w 0d 73.652 kg 123/82 absent unknown 15 155 absent Complains of increased nausea and vomiting. Denies vaginal bleeding. Denies contractions. Denies leaking. Light movement. process sono referral, sab precaution, comfort measure for nausea, zofran 4mg tid. discuss sab precaution, rtc 4 week 07/14/25 -?-?-?-?-?-?-?-?-?-?-?-?- 19w 2d 74.956 kg 128/75 absent unknown 19 145 active No OB complaints. Fetus is active. Denies leaking ,denies bleeding, denies contractions. No OB o'clock complaint aFP today. Di scussed SAB precautions. Continue prenatals. Increase fluids. MFM pending. Return in 4 weeks OB check GREGORY Calculator Estimated Delivery Date Method Current WG Current Estimate 12/06/25 LMP (Certain) 19w 2d Notes Visit Date: 06/14/25 Last Updated by: Betty Garrison CNM NIPT/Carrier screen-, A1: 5.1 Visit Date: 05/17/25 Last Updated by: Betty Garrison CNM 05/17/25: 24 yo . lmp 03/05/25. EDC 12/07/25, O+/abs-, rpr;;nr, rub imm, hbsag-,hiv-,hc-, GC/CT-, Office Procedures OB Clinic LOC & Office Proc's Nursing/Assessment Patient Status: Established Patient OB Clinic Nursing Assessment: Medication Reconciliation, Update PMH in EMR and Vital Signs OB Clinic Coordination of Care: Complex Care and Chronic Disease 1-5, Consent ,records obtained, informed consent, Education Simp Pt/Fam, Lab and Imaging orders, Results/Orders obtained and Staff clarify orders Special Needs: Heart tones Established Patient Charge Established Patient Point Assignment: 135 Established Patient Point Charge: EP Level 4 (120-155) Assessment & Plan Diagnosis / Problem List (1) Encounter for supervision of high risk in second trimester, antepartum: Status: Acute Plan aFP. Discussed SAB precautions. Discussed labor precautions. MFM appointment pending. Continue prenatals. Return in 4 weeks OB check Additional Plan Follow Up: 4 Weeks (obc)
== END 2025-07-14 13:49 | disposition home or self-care (01) ==
LOC: HODSOBC 13:06
PROVIDERS: Supervising Provider Advanced Practice Midwife; Visit Provider Advanced Practice Midwife
DX: O09.92 Supervision of high risk pregnancy, unspecified, second trimester (principal); Z88.0 Allergy status to penicillin; Z3A.19 19 weeks gestation of pregnancy
CPT/HCPCS: 99214; G0463

== ENCOUNTER 2025-08-20 08:46 | Outpatient (AMB) | payer BC, SELFPAY ==
[2025-08-20 09:07] VITALS: BP 116/83; PULSE 84; RESP 16; TEMP 36.6; O2SAT 98; BMI 29.4
--- NOTE | 2025-08-20 09:07 | AMB.OBVISIT ---
Vital Signs 08/20/25 09:07 Height 1.6 m Height Method Stated Weight 75.296 kg Weight Measurement Method Standing Scale BMI 29.4 BP 116/83 Blood Pressure Source Automatic Cuff Blood Pressure Location Left Upper Arm Position Sitting Respiration 16 Pulse 84 Pulse Source Monitor Temp 97.8 F Temp Source Oral Pulse Oximetry (%) 98 Oxygen Delivery Method Room Air Allergies/Home Meds Allergies & Medications Allergies Penicillins Allergy (Verified 08/20/25 09:11) Hives Medication Reconciliation vits no.126-ferrous fum 28 mg iron-folic acid 800 mcg tablet (Classic ) tab PO 05/17/25 [History Confirmed 08/20/25] Intake Visit Data Collection New Patient or Established: Established Patient (seen at [facility] within 3 years) Reason for Visit:: CARE Seen by Clinical Staff ONLY (RN/MA): No 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 Do You Feel Safe at Home: Yes Authorities Contacted: N/A PCP or OBGYN visit in last 3 months: Yes Hx Now: Yes Are you currently on any form of Control: No Pain Present Currently: No Pain Scale Used: Magana-Mcdowell/Numerical Pain scale:: 0 Smoking Status Smoking Status: Never smoker Immunizations Flu Vaccine in the Last 12 Months: No Flu Vaccine Exclusion Criteria: No Exclusion Criteria Questionnaires Covid-19 Vaccine Questionnaire Has patient been vacinated for Covid-19 Have you been vacinated for Covid-19: No PHQ-9 PHQ-2 Over the last 2 weeks, how often have you been bothered by any of the following problems? 1. Little interest or pleasure in doing things: not at all 2. Feeling down, depressed, or hopeless: not at all Total score: 0 PHQ-9 3. Trouble falling or staying asleep, or sleeping too much: Not at all 4. Feeling tired or having little energy: Not at all 5. Poor appetite or overeating: Not at all 6. Feeling bad about yourself - or that you are a failure or have let yourself or your family down: Not at all 7. Trouble concentrating on things, such as reading the newspaper or watching television: Not at all 8. Moving or speaking so slowly that other people could have noticed? - Or the opposite - being so fidgety or restless that you have been moving around a lot more than usual: not at all 9. Thoughts that you would be better off or of hurting yourself in some way: Not at all Total score: 0 Source: Developed by Drs. Juan Chirinos, Ashley Thornton, Anjum Conner and colleagues, with an educational jenaro from [employer]. 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 Last. March 05, 2025. This gives a due date of December 07, 2025. Patient works. History of a lumpectomy left breast that was benign. She denies any social habits. She has a history of anxiety and she is not on any medication. She denies any signs or symptoms of miscarriage. NIPT and carrier screen today. I will schedule her ultrasound for anatomy scan at [facility]. Discussed SAB precautions. And patient will come back in 4 weeks for OB check 06/14/25 <del>?</del> 15w 0d 73.652 kg 123/82 absent unknown 15 155 absent Complains of increased nausea and vomiting. Denies vaginal bleeding. Denies contractions. Denies leaking. Light movement. process sono referral, sab precaution, comfort measure for nausea, zofran 4mg tid. discuss sab precaution, rtc 4 week 07/14/25 <del>?</del> 19w 2d 74.956 kg 128/75 absent unknown 19 145 active No OB complaints. Fetus is active. Denies leaking ,denies bleeding, denies contractions. No OB o'clock complaint aFP today. Discussed SAB precautions. Continue prenatals. Increase fluids. MFM pending. Return in 4 weeks OB check 08/20/25 <del>?</del> 24w 4d 75.296 kg 116/83 absent unknown 24 154 active no OB complaints, fetus active, no UC/VB/leaking Third trimester labs. Discussed labor precautions. Patient has MFM appointment for next week return in 4 weeks OB GREGORY Calculator Estimated Delivery Date Method Current WG Current Estimate 12/06/25 LMP (Certain) 24w 4d Notes Visit Date: 08/20/25 Last Updated by: Betty Garrison CNM NIPT-. CF/SMA- Visit Date: 06/14/25 Last Updated by: Betty Garrison CNM NIPT/Carrier screen-, A1: 5.1 Visit Date: 05/17/25 Last Updated by: Betty Garrison CNM 05/17/25: 24 yo . lmp 03/05/25. EDC 12/07/25, O+/abs-, rpr;;nr, rub imm, hbsag-,hiv-,hc-, GC/CT-, Office Procedures OBC Clinic LOC & Office Proc's Nursing/Assessment Patient Status: Established Patient OB Clinic Nursing Assessment: Medication Reconciliation, Update PMH in EMR and Vital Signs OB Clinic Coordination of Care: Complex Care and Chronic Disease 1-5, Education Complex Pt/Fam, Consent,records obtained, informed consent, Lab and Imaging orders, Results/Orders obtained and Staff clarify orders Special Needs: Heart tones Established Patient Charge Established Patient Point Assignment: 140 Established Patient Point Charge: EP Level 4 (120-155) Assessment & Plan Diagnosis / Problem List (1) Encounter for supervision of high risk in second trimester, antepartum: Status: Acute Plan Third trimester labs. Review NIPT. Follow-up MFM appointment in a week. Discussed labor precautions. Return in 4 weeks OB check Additional Plan Follow Up: 4 Months (obc) 4 Weeks
== END 2025-08-20 09:43 | disposition home or self-care (01) ==
LOC: HODSOBC 08:46
PROVIDERS: Supervising Provider Advanced Practice Midwife; Visit Provider Advanced Practice Midwife
DX: O09.92 Supervision of high risk pregnancy, unspecified, second trimester (principal); Z3A.24 24 weeks gestation of pregnancy; Z88.0 Allergy status to penicillin
CPT/HCPCS: 99214; G0463

== ENCOUNTER 2025-09-16 10:02 | Outpatient (AMB) | payer BC, SELFPAY ==
[2025-09-16 11:14] VITALS: BP 118/77; PULSE 85; RESP 18; TEMP 36.3; O2SAT 98; BMI 29.2
--- NOTE | 2025-09-16 11:14 | OBCLNT_ITS ---
Vital Signs 09/16/25 11:14 Height 1.6 m Height Method Stated Weight 74.843 kg Weight Measurement Method Standing Scale BMI 29.2 BP 118/77 Blood Pressure Source Automatic Cuff Blood Pressure Location Right Upper Arm Position Sitting Respiration 18 Pulse 85 Pulse Source Monitor Temp 97.3 F Temp Source Temporal Artery Scan Pulse Oximetry (%) 98 Oxygen Delivery Method Room Air Allergies/Home Meds Allergies & Medications Allergies Penicillins Allergy (Verified 09/16/25 11:15) Hives Medication Reconciliation vits no.126-ferrous fum 28 mg iron-folic acid 800 mcg tablet (Classic P renatal) tab PO 05/17/25 [History Confirmed 09/16/25] aspirin 81 mg tablet,delayed release (Adult Aspirin Regimen) 81 mg PO QDAY #60 tabs 09/16/25 [Rx] Immunizations Immunizations Flu Vaccine in the Last 12 Months: No Flu Vaccine Exclusion Criteria: No Exclusion Criteria Care OB Visit Log OB Flowsheet Initial Weight: Not Recorded Date -?-?-?-?-?-?-?-?-?-?-?-?- EGA Weight BP Alb Glu CTX Pres Fundal ht FHR Mov Dilation Station Effacement Hx Notes Visit Note 05/17/25 -?-?-?-?-?-?-?-?-?-?-?-?- 11w 0d 74.503 kg 136/84 absent unknown 11 145 absent 24-year-old 1 para 0 for OBI. Last. March 05, 2025. This gives a due date of December 07, 2025. Patient works. History of a lumpectomy left breast that was benign. She denies any social habits. She has a history of anxiety and she is not on any medication. She denies any signs or symptoms of miscarriage. NIPT and carrier screen today. I will schedule her ultrasound for anatomy scan at [facility]. Discussed SAB precautions. And patient will come back in 4 weeks for OB check 06/14/25 -?-?-?-?-?-?-?-?-?-?-?-?- 15w 0d 73.652 kg 123/82 absent unknown 15 155 absent Complains of increased nausea and vomiting. Denies vaginal bleeding. Denies contractions. Denies leaking. Light movement. process sono referral, sab precaution, comfort measure for nausea, zofran 4mg tid. discuss sab precaution, rtc 4 week 07/14/25 -?-?-?-?-?-?-?-?-?-?-?-?- 19w 2d 74.956 kg 128/75 absent unknown 19 145 active No OB complaints. Fetus is active. Denies leaking ,denies bleeding, denies contractions. No OB o'clock complaint aFP today. Di scussed SAB precautions. Continue prenatals. Increase fluids. MFM pending. Return in 4 weeks OB check 08/20/25 -?-?-?-?-?-?-?-?-?-?-?-?- 24w 4d 75.296 kg 116/83 absent unknown 24 154 active no OB complaints, fetus active, no UC/VB/leaking T hird trimester labs. Discussed labor precautions. Patient has [facility] appointment for next week return in 4 weeks OB 09/16/25 -?-?-?-?-?-?-?-?-?-?-?-?- 28w 3d 74.843 kg 118/77 absent unknown 28 145 active Denies headache. Denies blurred vision, epigastric pain. No visual changes. Reports good movement. Denies leaking, bleeding, contractions. Reviewed third trimester labs with patient they were normal. Reviewed ultrasound from [facility]. Baby is growing in the 99th percentile. Reviewed patient to take low-dose baby aspirin to daily. We also did basic PIH workup and 24-hour protein. Discussed labor precautions. And I discussed diet and weight. Return in 3 weeks OB to Reviewed third trimester lab s with patient they were normal. Reviewed ultrasou nd from [facility]. Baby is growing in the 99th percentile. Reviewed patient to take low-dose baby aspirin to daily. We also did basic PIH workup and 24-hour protein. Discussed labor precautions. And I discussed diet and weight. Return in 3 weeks OB check, f/u [facility] 6 week GREGORY Calculator Estimated Delivery Date Method Current WG Current Estimate 12/06/25 LMP (Certain) 28w 3d Other Estimates 12/10/25 Ultrasound #1 27w 6d 12/06/25 Manual 28w 3d final gregory: . EFW:99% Notes Visit Date: 09/16/25 Last Updated by: Betty Garrison CNM 3rd tri labs wnl, , RPR::NR, A1c: 5.1, 1 hr gtt wnl sono: 08/25; IUP 24w5: EFW 99% Visit Date: 08/20/25 Last Updated by: Betty Garrison CNM NIPT-. CF/SMA- Visit Date: 06/14/25 Last Updated by: Betty Garrison CNM NIPT/Carrier screen-, A1: 5.1 Visit Date: 05/17/25 Last Updated by: Betty Garrison CNM 05/17/25: 24 yo . lmp 03/05/25. EDC 12/07/25, O+/abs-, rpr;;nr, rub imm, hbsag-,hiv-,hc-, GC/CT-, Office Procedures OBC Clinic LOC & Office Proc's Nursing/Assessment Patient Status: Established Patient OB Clinic Nursing Assessment: Medication Reconciliation, Update PMH in EMR and Vital Signs OB Clinic Coordination of Care: Complex Care and Chronic Disease 1-5, Education Complex Pt/Fam, Consent,records obtained, informed consent, Lab and Imaging orders, Results/Orders obtained and Staff clarify orders Special Needs: Heart tones Established Patient Charge Established Patient Point Assignment: 140 Established Patient Point Charge: EP Level 4 (120-155) Assessment & Plan Diagnosis / Problem List (1) Encounter for supervision of high risk in third trimester, antepartum: Status: Acute Plan Patient to start low-dose baby aspirin. I reviewed third trimester labs with patient we also reviewed ultrasound. Patient is aware that the baby is growing on the bigger side. So we discussed diet and weight gain. Walk 40 minutes a day. Avoid sugary foods. Discussed labor precautions. Patient has a follow-up sono in 6 weeks. We did PIH panel with a 24-hour protein and TSH today. Return in 3 weeks OB check Additional Plan Follow Up: 3 Weeks (obc)
== END 2025-09-16 11:17 | disposition home or self-care (01) ==
PROVIDERS: Supervising Provider Advanced Practice Midwife; Visit Provider Advanced Practice Midwife
DX: O09.893 Supervision of other high risk pregnancies, third trimester (principal); O36.63X0 Maternal care for excessive fetal growth, third trimester, not applicable or unspecified; Z3A.28 28 weeks gestation of pregnancy; Z88.0 Allergy status to penicillin
CPT/HCPCS: 99214; G0463

== ENCOUNTER 2025-10-11 11:04 | Outpatient (AMB) | payer BC, SELFPAY ==
[2025-10-11 11:21] VITALS: BP 126/84; PULSE 106; RESP 20; TEMP 36.4; O2SAT 98; BMI 29.4
--- NOTE | 2025-10-11 11:21 | AMB.OBPNC ---
Vital Signs 10/11/25 11:21 Height 1.6 m Height Method Stated Weight 75.353 kg Weight Measurement Method Standing Scale BMI 29.4 BP 126/84 Blood Pressure Source Automatic Cuff Blood Pressure Location Left Upper Arm Position Sitting Respiration 20 Pulse 106 H Pulse Source Monitor Temp 97.5 F Temp Source Oral Pulse Oximetry (%) 98 Oxygen Delivery Method Room Air Allergies/Home Meds Allergies & Medications Allergies Penicillins Allergy (Verified 10/11/25 11:21) Hives Medication Reconciliation vits no.126-ferrous fum 28 mg iron-folic acid 800 mcg tablet (Classic ) tab PO 05/17/25 [History Confirmed 10/11/25] aspirin 81 mg tablet,delayed release (Adult Aspirin Regimen) 81 mg PO QDAY #60 tabs 09/16/25 [Rx Confirmed 10/11/25] Immunizations Immunizations Flu Vaccine in the Last 12 Months: No Flu Vaccine Exclusion Criteria: Refused by Patient Care OB Visit Log OB Flowsheet Initial Weight: Not Recorded Date <del>?</del> EGA Weight BP Alb Glu CTX Pres Fundal ht FHR Mov Dilation Station Effacement Hx Notes Visit Note 05/17/25 <del>?</del> 11w 0d 74.503 kg 136/84 absent unknown 11 145 absent 24-year-old 1 para 0 for OBI. Last. March 05, 2025. This gives a due date of December 07, 2025. Patient works. History of a lumpectomy left breast that was benign. She denies any social habits. She has a history of anxiety and she is not on any medication. She denies any signs or symptoms of miscarriage. NIPT and carrier screen today. I will schedule her ultrasound for anatomy scan at [facility]. Discussed SAB precautions. And patient will come back in 4 weeks for OB check 06/14/25 <del>?</del> 15w 0d 73.652 kg 123/82 absent unknown 15 155 absent Complains of increased nausea and vomiting. Denies vaginal bleeding. Denies contractions. Denies leaking. Light movement. process sono referral, sab precaution, comfort measure for nausea, zofran 4mg tid. discuss sab precaution, rtc 4 week 07/14/25 <del>?</del> 19w 2d 74.956 kg 128/75 absent unknown 19 145 active No OB complaints. Fetus is active. Denies leaking ,denies bleeding, denies contractions. No OB o'clock complaint aFP today. Discussed SAB precautions. Continue prenatals. Increase fluids. MFM pending. Return in 4 weeks OB check 08/20/25 <del>?</del> 24w 4d 75.296 kg 116/83 absent unknown 24 154 active no OB complaints, fetus active, no UC/VB/leaking Third trimester labs. Discussed labor precautions. Patient has [facility] appointment for next week return in 4 weeks OB 09/16/25 <del>?</del> 28w 3d 74.843 kg 118/77 absent unknown 28 145 active Denies headache. Denies blurred vision, epigastric pain. No visual changes. Reports good movement. Denies leaking, bleeding, contractions. Reviewed third trimester labs with patient they were normal. Reviewed ultrasound from [facility]. Baby is growing in the 99th percentile. Reviewed patient to take low-dose baby aspirin to daily. We also did basic PIH workup and 24-hour protein. Discussed labor precautions. And I discussed diet and weight. Return in 3 weeks OB to Reviewed third trimester labs with patient they were normal. Reviewed ultrasound from [facility]. Baby is growing in the 99th percentile. Reviewed patient to take low-dose baby aspirin to daily. We also did basic PIH workup and 24-hour protein. Discussed labor precautions. And I discussed diet and weight. Return in 3 weeks OB check, f/u mfm 6 week 10/11/25 <del>?</del> 32w 0d 75.353 kg 126/84 absent unknown 32 145 active Patient denies headache, blurred vision, epigastric pain. Reports movement. Denies any contractions, leaking or bleeding. Alk phosphatase was elevated to 128. And her AST was 55 and SGPT was 107. TSH normal. Patient states that she feels itching over her entire body Cholestasis labs today. Consult with Dr. Stover regarding AST and ALT. I repeated her CMP added a 24-hour protein and also hepatitis. Discussed labor precautions and return in 2 weeks OB check GREGORY Calculator Estimated Delivery Date Method Current WG Current Estimate 12/06/25 LMP (Certain) 32w 0d Other Estimates 12/10/25 Ultrasound #1 31w 3d 12/06/25 Manual 32w 0d final gregory: 12/06/25. EFW:99% Notes Visit Date: 10/11/25 Last Updated by: Betty Garrison CNM 10/01: BUN/creatine ratio :8, alk phosphatase: 128/H, AST:55, ALT/SGPT: 107,TSH wnl Visit Date: 09/16/25 Last Updated by: Betty Garrison CNM 3rd tri labs wnl, , RPR::NR, A1c: 5.1, 1 hr gtt wnl sono: 08/25; IUP 24w5: EFW 99% Visit Date: 08/20/25 Last Updated by: Betty Garrison CNM NIPT-. CF/SMA- Visit Date: 06/14/25 Last Updated by: Betty Garrison CNM NIPT/Carrier screen-, A1: 5.1 Visit Date: 05/17/25 Last Updated by: Betty Garrison CNM 05/17/25: 24 yo . lmp 03/05/25. EDC 12/07/25, O+/abs-, rpr;;nr, rub imm, hbsag-,hiv-,hc-, GC/CT-, Office Procedures OBC Clinic LOC & Office Proc's Nursing/Assessment Patient Status: Established Patient OB Clinic Nursing Assessment: Medication Reconciliation, Update PMH in EMR and Vital Signs OB Clinic Coordination of Care: Complex Care and Chronic Disease 1-5, Consent,records obtained, informed consent, Education Simp Pt/Fam, 1 Ins Authorization, Lab and Imaging orders, Results/Orders obtained and Staff clarify orders Special Needs: Heart tones Established Patient Charge Established Patient Point Assignment: 150 Established Patient Point Charge: EP Level 4 (120-155) Assessment & Plan Diagnosis / Problem List (1) Encounter for supervision of high risk in third trimester, antepartum: Status: Acute Plan Cholestasis panel. Repeat CMP and PIH panel add 24-hour urine protein and a hepatic panel. Consulted with Dr. Stover regarding labs and ALT and SGPT. Discussed labor precautions. Kick count twice a day. Return in 2 weeks OB check Additional Plan Follow Up: 2 Weeks (obc)
== END 2025-10-11 12:20 | disposition home or self-care (01) ==
LOC: HODSOBC 11:04
PROVIDERS: Supervising Provider Advanced Practice Midwife; Visit Provider Advanced Practice Midwife
DX: O09.893 Supervision of other high risk pregnancies, third trimester (principal); O26.893 Other specified pregnancy related conditions, third trimester; L29.9 Pruritus, unspecified; Z3A.32 32 weeks gestation of pregnancy; Z88.0 Allergy status to penicillin
CPT/HCPCS: 99214; G0463

== ENCOUNTER 2025-10-14 16:18 | Emergency (ER) | payer BC, SELFPAY ==
[2025-10-14 16:30] VITALS: BP 118/75; PULSE 130; RESP 18; TEMP 37.6; O2SAT 99; BMI 28.5
--- NOTE | 2025-10-14 16:35 | XR_ITS ---
EXAMINATION: PA chest single view TECHNIQUE: Upright PA chest single view Date and time: October 14, 2025, 1652 hours, comparison August 25, 2017 INDICATIONS: Coughing fever beginning 2 days ago FINDINGS: Normal heart size Lungs are clear. Intact osseous structures IMPRESSION: No active disease
--- NOTE | 2025-10-14 16:39 | PD.EDRME ---
Rapid Medical Screening Exam RME Arrival date/time: 10/14/25 16:18 24-year-old female presents to the emergency room today for concerns for fever generalized bodyaches and blood in her urine patient reports being approximate 34 weeks Chief Complaint: Fever Vital signs: Vital Signs Temperature 99.6 F 10/14/25 16:30 Pulse Rate 130 H 10/14/25 16:30 Respiratory Rate 18 10/14/25 16:30 Blood Pressure 118/75 10/14/25 16:30 Pulse Oximetry (%) 99 10/14/25 16:30 Oxygen Delivery Method Room Air 10/14/25 16:30 Vital signs reviewed by provider: Yes Exam: Clinically patient is tachycardic but does not appear toxic Clinical Impression: Sepsis protocol initiated Maternal sepsis alert called
--- NOTE | 2025-10-14 16:53 | PC.NURSE ---
RESPONDED TO MATERNAL SEPSIS CALL. ON EVALUATION PT DENIES BLEEDING DENIES LEAKING DENIES CTX PT REPORTED BLOOD IN URINE AND PAIN ON URINATION. PT REPORTED POSITIVE MOVEMENT ABD PALPATED SOFT. FHR OBTAINED VIA DOPPLER 150. PHONE CALL MADE TO MD BULLARD REGARDING PT, STATES TO ALLOW PT TO BE WORKED UP IN ED AND MD BULLARD CAN BE CALLED WITH ANY ADDITIONAL QUESTIONS. MD BULLARD GAVE NO ORDERS FOR ME AT THIS TIME.,
[2025-10-14 17:05] LABS: Lactate (Lactic Acid) 1.2 mMol/L (0.4-2.0)
[2025-10-14 17:06] LABS: Basophils # (Auto) 0.0 Thou/mm3 (0.0-0.2); Basophils % (Auto) 0 % (0-2.5); Eosinophils # (Auto) 0.0 Thou/mm3 (0.0-0.5); Eosinophils % (Auto) 0 % (0-10); Hematocrit 34.5 % (36.0-46.0); Hemoglobin 11.3 g/dL (12.0-16.0); Immature Granulocytes Auto 0.07 Thou/mm3 (0.00-0.00); Lymphocytes # (Auto) 1.0 Thou/mm3 (1.0-4.8); Lymphocytes % (Auto) 11 % (10-50); Mean Corpuscular HGB Conc 32.8 g/dl (31.0-37.0); Mean Corpuscular Hemoglobin 25.8 pg (25.0-35.0); Mean Corpuscular Volume 79 fL (80-100); Monocytes # (Auto) 0.6 Thou/mm3 (0.0-0.8); Monocytes % (Auto) 7 % (0-12); Neutrophils # (Auto) 7.6 Thou/mm3 (1.8-7.7); Neutrophils % (Auto) 82 % (37-80); Nucleated Red Blood Cell # 0.00 Thou/mm3 (0.00-0.00); Nucleated Red Blood Cell % 0 /100 WBC (0); Platelet Count 260 Thou/mm3 (140-440); RDW Standard Deviation 39.3 fL (36.4-46.3); Red Blood Count 4.38 Miln/mm3 (4.00-5.20); White Blood Count 9.3 Thou/mm3 (3.6-11.0)
[2025-10-14] MEDS: SODIUM CHLORIDE 0.9% 1000 ML 1,000 ML 999 ML IV (17:22)
--- NOTE | 2025-10-14 17:22 | PC.NURSE ---
PT COMING IN FROM ED LOBBY WITH C/O FEVER/CHILLS X2 DAYS. PT HAS NO SIGNIFICANT PMH. PT IS 32 WEEKS AND REPORTS THIS IS HER 1ST . . PT STATES HAVING COUGH WITH CLEAR PLHEGM INTERMITENTLY FOR 3 DAYS. PT CONNECTED TO MONITORS AT THIS TIME. PT LAYING ON BED COMFORTABLY WITH NO ACUTE DISTRESS NOTED AT THIS TIME; EQUAL CHEST RISE & FALL NOTED.
--- NOTE | 2025-10-14 17:25 | PD.EDFEVER ---
ED Fever RME/HPI General Chief Complaint: Fever Stated Complaint: FEVER/CHILLS/32 WKS /BLOOD W/URINATION Time Seen by Provider: 10/14/25 17:17 Arrival date/time: 10/14/25 16:18 RME / HPI RME / HPI Narrative: 10/14/25 16:18 24-year-old female presents to the emergency room today for concerns for fever generalized bodyaches and blood in her urine patient reports being approximate 34 weeks . Also complained of fever, this been going since yesterday, associated with sore throat body aches joint pains, severity moderate. Maternal sepsis alert was initiated right away. Exam: Clinically patient is tachycardic but does not appear toxic Impression: Sepsis protocol initiated Maternal sepsis alert called Related Data Home Medications ?Medication ?Instructions ?Recorded ?Confirmed vits no.126-ferrous fum tab PO 05/17/25 10/11/25 28 mg iron-folic acid 800 mcg tablet (Classic ) Previous Rx's ?Medication ?Instructions ?Recorded aspirin 81 mg tablet,delayed 81 mg PO QDAY #60 tabs 09/16/25 release (Adult Aspirin Regimen) cephalexin 500 mg capsule 500 mg PO TID 7 days #21 caps 10/14/25 Allergies Allergy/AdvReac Type Severity Reaction Status Date / Time Penicillins Allergy Hives Verified 10/14/25 16:24 Review of Systems Review of Systems Narrative Review of Systems: Review of system reviewed and within normal limits except mentioned in HPI Physical Exam Narrative Physical exam: VITAL SIGNS: Reviewed. GENERAL APPEARANCE: Alert and interactive, follows commands, no acute distress, HEAD AND FACE: Non-traumatic. ENT: PERRL, pink conjunctivitis, eyelid no trauma, Mucous membrane moist. NECK: Supple, nontender, no nuchal rigidity. CHEST: No tenderness, no crepitus, no paradoxical movement, no retractions. LUNGS: Clear, well ventilated, symmetric, no rales, no wheezing, no ronchi, no stridor, good breath sounds bilaterally. HEART: Regular rate, regular rhythm, no murmur, no gallops. ABDOMEN: Soft, positive bowel sounds, nondistended, no guarding, gravid abdomen, no rebound, no masses, RECTAL: Deferred. GENITAL: Deferred. NEUROLOGICAL: Gross motor function intact sensory function intact, Appropriate for age. MUSCULOSKELETAL: low back nontender, full range of motion. EXTREMITIES: Nontender, full range of motion. SKIN: Color pink, dry, no rash, no lacerations, no abrasions, no contusions. LYMPHATICS: Deferred. Course Quality Measures none Orders Category Date Time Status Bedside COVID-19 Antigen Test NOW Care 10/14/25 16:35 Active Bedside Influenza A&B Antigen Test NOW Care 10/14/25 16:35 Completed Insert IV NOW Care 10/14/25 16:39 Active XR chest 1V portable Stat Exams 10/14/25 16:35 Completed Beta HCG,Quantitative Stat Lab 10/14/25 16:45 Completed Blood Culture (Lab) Stat Lab 10/14/25 16:50 Received CBC Stat Lab 10/14/25 16:45 Completed Comprehensive Metabolic Panel Stat Lab 10/14/25 16:45 Completed Lactate (Lactic Acid) Stat Lab 10/14/25 16:45 Completed Procalcitonin Stat Lab 10/14/25 16:45 Completed Urinalysis Stat Lab 10/14/25 19:26 Completed Urine Culture Stat Lab 10/14/25 19:26 Received Acetaminophen Tab [Tylenol ES Tab] Med 10/14/25 17:25 Discontinued 500 mg PO X1 ONE Sodium Chloride 0.9% 1000 ml [Ns] 1,000 ml Med 10/14/25 16:35 Discontinued IV 999 mls/hr cefTRIAXone/D5w 1gm IV premix [Rocephin/D5w 1gm IV Med 10/14/25 20:15 Active premix] 1 gm in 50 ml IV X1 Vital Signs Vital signs: Vital Signs Temperature 99.6 F 10/14/25 16:30 Pulse Rate 130 H 10/14/25 16:30 Respiratory Rate 18 10/14/25 16:30 Blood Pressure 118/75 10/14/25 16:30 Pulse Oximetry (%) 99 10/14/25 16:30 Oxygen Delivery Method Room Air 10/14/25 16:30 Fever MDM Narrative MDM Narrative:: 24-year-old female presents to the emergency room today for concerns for fever generalized bodyaches and blood in her urine patient reports being approximate 34 weeks . Also complained of fever, this been going since yesterday, associated with sore throat body aches joint pains, severity moderate. Maternal sepsis alert was initiated right away. CBC did not show any leukocytosis. Urinalysis positive for UTI. Chest x-ray came back with no pneumonia. Results discussed with the patient. Patient was given IV fluids, IV ceftriaxone. Patient was also referred to labor and delivery after patient was discharged in the emergency room Patient data External records reviewed:: None Clinical information provided by:: patient Social determinants that could affect healthcare access:: none Patient has the following chronic illnesses:: None How is presenting disease/condition affected by chronic disease/condition?: no chronic disease Evaluation data The following diagnostics were reviewed and interpreted by me:: lab results and radiology exam(s) Lab and/or radiology exams considered but not ordered:: None Interpretation Summary: See above Medications / Prescriptions Medications or Prescriptions considered but not ordered:: None Medication administrations:: Medication Administration History Ceftriaxone Sodium/Dextrose (Rocephin/D5w 1gm Iv Premix) 1 gm in 50 mls @ 100 mls/hr IV X1 ONE Stop: 10/14/25 20:44 Discontinued Medications Acetaminophen (Acetaminophen 500 Mg Tablet) 500 mg PO X1 ONE Stop: 10/14/25 17:26 Last Admin: 10/14/25 17:29 Dose: 500 mg Documented By: PINKY Sodium Chloride (Ns) 1,000 mls @ 999 mls/hr IV .Q1H1M ONE Stop: 10/14/25 17:35 Last Infusion: 10/14/25 18:35 Dose: Infused Documented By: Admin: 10/14/25 17:22 Dose: 999 mls/hr Documented By: PINKY See above Consultations Consultation(s) initiated? (list below): No Diagnosis Fever Differential Diagnosis: fever of unknown origin and viral infection Most likely diagnosis given after review of the tests above:: UTI, Admission Indicated Admission indicated?: not indicated Admission Request Was there a request for admission?: No Disposition Plan Disposition Plan: Discharge Discharge Attestation Discharge Attestation: The patient and all family members were given an opportunity to ask questions and understood the discharge instructions. Discharge instructions specifically effects, indications for sooner follow up or return to the emergency department, and the expected course of current diagnosis. Patient condition: Stable Discharge Plan Plan Patient Disposition: HOME (Self Care) Discharge Disposition comment: stable Prescriptions/Referrals Prescriptions/Med Rec: New cephalexin 500 mg capsule 500 mg PO TID 7 Days Qty: 21 0RF No Action Classic 28 mg iron- 800 mcg tablet PO aspirin [Adult Aspirin Regimen] 81 mg tablet,delayed release (DR/EC) 81 mg PO QDAY Qty: 60 2RF Rx Instructions: Take 2 tabs daily for PIH prevention Referrals: No Primary/Family,Physician [Primary Care Provider] - In 1 week Problem List Clinical Impression: UTI (urinary tract infection), Patient/Caregiver Discharge Instructions Discharge Activity: activity as tolerated Education Materials: Preg 3rd Trimester Additional Instructions: Thank you for the opportunity for serving you today. You are stable for discharged . You are advised to: Follow-up with your [facility] in 1 to 2 days Return to ED for worsening of symptoms Increase oral fluids Take medication as prescribed Print Language: Montserratian Stand Alone Forms: Shruthi Award Info., Patient Portal Info Letter PA/[employer] LO[employer]ER Supervising Physician PA/[employer]ER Supervising Physician: MD Irena
[2025-10-14 17:29] VITALS: TEMP 37.3
[2025-10-14] MEDS: ACETAMINOPHEN 500 MG TABLET PO (17:29)
[2025-10-14 17:36] LABS: Alanine Aminotransferase 91 U/L (10-49); Albumin, Serum 4.5 gm/dL (3.5-5.0); Albumin/Globulin Ratio 1.7 (1.2-2.2); Alkaline Phosphatase 155 U/L (46-116); Anion Gap 11 (7-16); Aspartate Amino Transferase 79 U/L (0-34); BUN/Creatinine Ratio 7 Ratio (12-20); Bilirubin,Total 0.7 mg/dL (0.3-1.2); Blood Urea Nitrogen < 5 mg/dL (9-23); Calcium 9.2 mg/dL (8.3-10.6); Calcium (Corrected) 9.2 mg/dL (8.5-10.1); Carbon Dioxide 20.0 mMol/L (20.0-31.0); Chloride 104 mMol/L (98-107); Creatinine (Component) 0.7 mg/dL (0.6-1.3); Estimated Creatinine Clearance 117.6 mL/min (>60); Globulin 2.7 gm/dL (2.3-3.5); Glucose 91 mg/dL (74-106); Osmolality,Calculated 267 (275-295); Potassium 4.1 mMol/L (3.4-5.1); Procalcitonin 0.13 ng/ml (0.0-0.49); Sodium 135 mMol/L (136-145); Total Protein 7.2 gm/dL (5.7-8.2); eGFR > 60 See Note
[2025-10-14 18:25] VITALS: BP 136/82; PULSE 111; RESP 18; TEMP 37.4; O2SAT 100
[2025-10-14 18:29] VITALS: TEMP 37.4
[2025-10-14 19:30] LABS: Collection Type, Urine Clean Catch
[2025-10-14 19:44] LABS: Amorphous Crystals,Urine Present (Absent); Bacteria,Urine 2+; Bilirubin,Urine Negative (Negative); Blood,Urine Negative (Negative); Clarity,Urine Turbid (Clear/Hazy); Color,Urine Lt-Yellow (Lt Yel-Yel); Glucose, Urine Negative (Negative); Ketones,Urine 2+ (Negative); Leukocyte Esterase,Urine Positive (Negative); Nitrite,Urine Negative (Negative); PH,Urine 6.5 (5.0-7.0); Protein,Urine Negative (Neg - Trace); RBC,Urine 5 /hpf (0-3); Specific Gravity,Urine 1.005 (1.001-1.035); Squamous Epithelial Cell,Urine 11 /hpf (0-5); Urobilinogen,Urine Negative mg/dL (0.0-1.0); WBC,Urine 8 /hpf (0-5)
[2025-10-14 20:09] VITALS: BP 122/86; PULSE 95; RESP 18; TEMP 36.9; O2SAT 100
--- NOTE | 2025-10-14 20:13 | PC.NURSE ---
pt resting quietly. is feeling better. awaiting md reevaluation.
[2025-10-14] MEDS: cefTRIAXone/D5w 1gm IV premix 1 GM/50 ML BAG IV (20:23)
--- NOTE | 2025-10-14 20:31 | PC.NURSE ---
pt will be discharged and taken to OB for clearance after antibiotics. i called OB, gave report and informed them of our plan.
== END 2025-10-14 22:15 | disposition home or self-care (01) ==
PROVIDERS: Nurse Practitioner Primary Care; Emergency Provider Family Medicine
DX: O23.43 Unspecified infection of urinary tract in pregnancy, third trimester (principal); N39.0 Urinary tract infection, site not specified; O99.891 Other specified diseases and conditions complicating pregnancy; R05.9 Cough, unspecified; R50.9 Fever, unspecified; M25.50 Pain in unspecified joint; Z3A.34 34 weeks gestation of pregnancy
CPT/HCPCS: 36415; 71045; 80053; 81001; 83605; 84145; 84702; 85025; 87040; 87086; 87502; 87635; 96361; 96365; 99283; J0696; J7030; A9270

== ENCOUNTER 2025-10-25 11:19 | Outpatient (AMB) | payer BC, SELFPAY ==
--- NOTE | 2025-10-25 11:26 | OBCLNT_ITS ---
Vital Signs 10/25/25 11:27 Height 1.6 m Height Method Stated Weight 78.245 kg Weight Measurement Method Standing Scale BMI 30.5 BP 126/83 Blood Pressure Source Automatic Cuff Blood Pressure Location Right Upper Arm Position Sitting Respiration 18 Pulse 85 Pulse Source Monitor Temp 97.4 F Temp Source Temporal Artery Scan Pulse Oximetry (%) 96 Oxygen Delivery Method Room Air Allergies/Home Meds Allergies & Medications Allergies Penicillins Allergy (Verified 10/25/25 11:28) Hives Medication Reconciliation vits no.126-ferrous fum 28 mg iron-folic acid 800 mcg tablet (Classic P renatal) tab PO 05/17/25 [History Confirmed 10/25/25] aspirin 81 mg tablet,delayed release (Adult Aspirin Regimen) 81 mg PO QDAY #60 tabs 09/16/25 [Rx Confirmed 10/25/25] ursodiol 200 mg capsule 200 mg PO BID #30 caps 10/25/25 [Rx] Immunizations Immunizations Flu Vaccine in the Last 12 Months: No Flu Vaccine Exclusion Criteria: No Exclusion Criteria Care OB Visit Log OB Flowsheet Initial Weight: Not Recorded Date -?-?-?-?-?-?-?-?-?-?-?-?- EGA Weight BP Alb Glu CTX Pres Fundal ht FHR Mov Dilation Station Effacement Hx Notes Visit Note 05/17/25 -?-?-?-?-?-?-?-?-?-?-?-?- 11w 0d 74.503 kg 136/84 absent unknown 11 145 absent 24-year-old 1 para 0 for OBI. Last. March 05, 2025. This gives a due date of December 07, 2025. Patient works. History of a lumpectomy left breast that was benign. She denies any social habits. She has a history of anxiety and she is not on any m edication. She denies any signs or symptoms of miscarriage. NIPT and carrier screen today. I will schedule her ultrasound for anatomy scan at [facility]. Discussed SAB precautions. And patient will come back in 4 weeks for OB check 06/14/25 -?-?-?-?-?-?-?-?-?-?-?-?- 15w 0d 73.652 kg 123/82 absent unknown 15 155 absent Complains of increased nausea and vomiting. Denies vaginal bleeding. Denies contractions. Denies leaking. Light movement. process sono referral, sab precaution, comfort measure for nausea, zofran 4mg tid. discuss sab precaution, rtc 4 week 07/14/25 -?-?-?-?-?-?-?-?-?-?-?-?- 19w 2d 74.956 kg 128/75 absent unknown 19 145 active No OB complaints. Fetus is active. Denies leaking ,denies bleeding, denies contractions. No OB o'clock complaint aFP today. Di scussed SAB precautions. Continue prenatals. Increase fluids. MFM pending. Return in 4 weeks OB check 08/20/25 -?-?-?-?-?-?-?-?-?-?-?-?- 24w 4d 75.296 kg 116/83 absent unknown 24 154 active no OB complaints, fetus active, no UC/VB/leaking T hird trimester labs. Discussed labor precautions. Patient has [facility] appointment for next week return in 4 weeks OB 09/16/25 -?-?-?-?-?-?-?-?-?-?-?-?- 28w 3d 74.843 kg 118/77 absent unknown 28 145 active Denies headache. Denies blurred vision, epigastric pain. No visual changes. Reports good movement. Denies leaking, bleeding, contractions. Reviewed third trimester labs with patient they were normal. Reviewed ultrasound from [facility]. Baby is growing in the 99th percentile. Reviewed patient to take low-dose baby aspirin to daily. We also did basic PIH workup and 24-hour protein. Discussed labor precautions. And I discussed diet and weight. Return in 3 weeks OB to Reviewed third trimester lab s with patient they were normal. Reviewed ultrasound from [facility]. Baby is growing in the 99th percentile. Reviewed patient to take low-dose baby aspirin to daily. We also did basic PIH workup and 24- hour protein. Discussed labor precautions. And I discussed diet and weight. Return in 3 weeks OB check, f/u mfm 6 week 10/11/25 -?-?-?-?-?-?-?-?-?-?-?-?- 32w 0d 75.353 kg 126/84 absent unknown 32 145 active Patient denies headache, blurred vision, epigastric pain. Reports movement. Denies any contractions, leaking or bleeding. Alk phosphatase was elevated to 128. And her AST was 55 and SGPT was 107. TSH normal. Patient states that she feels itching over her entire body Cho lestasis labs today. Consult with Dr. Stover regarding AST and ALT. I repeated her CMP added a 24-hour protein and also hepatitis. Discussed labor precautions and return in 2 weeks OB check 10/25/25 -?-?-?-?-?-?-?-?-?-?-?-?- 34w 0d 78.245 kg 126/83 absent cephalic 34 145 active Reports good movement. Denies contractions. Denies labor. No leaking or bleeding. Complains of itchiness. Denies PIH signs and symptoms. sent to [facility], draw amylase,Lipase, galbladder sono, ursodiol 200 bid, NST/BPP/complete, discuss ptl precaution, fkc bid, discussed danger signs symptoms and ER precautions. Return in a week OB check and repeat PIH labs sent to [facility], draw amylase,L ipase, galbladder sono, ursodiol 200 bid, NST/BPP/complete, discuss ptl precaution, fkc bid, discussed danger signs symptoms and ER precautions. Return in a week OB check and repeat PIH labs. deliver at 39 week GREGORY Calculator Estimated Delivery Date Method Current WG Current Estimate 12/06/25 LMP (Certain) 34w 0d Other Estimates 12/10/25 Ultrasound #1 33w 3d 12/06/25 Manual 34w 0d final gregory: . EFW:99% Notes Visit Date: 10/25/25 Last Updated by: Betty Garrison CNM 10/25: bun:4,creatinine:o.51, ratio: 8, alk phos: 183, AST: 93/ALT: 112, total bile acid: 6.6 Visit Date: 10/11/25 Last Updated by: Betty Garrison CNM 10/01: BUN/creatine ratio :8, alk phosphatase: 128/H, AST:55, ALT/SGPT: 107,TSH wnl Visit Date: 09/16/25 Last Updated by: Betty Garrison CNM 3rd tri labs wnl, , RPR::NR, A1c: 5.1, 1 hr gtt wnl sono: 08/25; IUP 24w5: EFW 99% Visit Date: 08/20/25 Last Updated by: Betty Garrison CNM NIPT-. CF/SMA- Visit Date: 06/14/25 Last Updated by: Betty Garrison CNM NIPT/Carrier screen-, A1: 5.1 Visit Date: 05/17/25 Last Updated by: Betty Garrison CNM 05/17/25: 24 yo . lmp 03/05/25. EDC 12/07/25, O+/abs-, rpr;;nr, rub imm, hbsag-,hiv-,hc-, GC/CT-, Office Procedures [facility] Clinic LOC & Office Proc's Nursing/Assessment Patient Status: Established Patient OB Clinic Nursing Assessment: Medication Reconciliation, Update PMH in EMR and Vital Signs OB Clinic Coordination of Care: Complex Care and Chronic Disease 1-5, Education Complex Pt/Fam, Consent,records obtained, informed consent, Lab and Imaging orders, Results/Orders obtained and Staff clarify orders Special Needs: Heart tones Established Patient Charge Established Patient Point Assignment: 140 Established Patient Point Charge: EP Level 4 (120-155) Assessment & Plan Diagnosis / Problem List (1) Cholestasis during : Status: Acute (2) Encounter for supervision of high risk in third trimester, antepartum: Status: Acute Plan Patient to labor and delivery. Order amylase and lipase. Ordered gallbladder ultrasound. Complete NST BPP and complete OB. Discussed kick count. Discussed PIH precautions and danger signs and symptoms. Increase fluids. I reviewed labs. Ursodiol 200 p.o. twice daily return in a week for OB check and PIH labs Additional Plan Follow Up: 1 Week (obc)
[2025-10-25 11:27] VITALS: BP 126/83; PULSE 85; RESP 18; TEMP 36.3; O2SAT 96; BMI 30.5
== END 2025-10-25 13:05 | disposition home or self-care (01) ==
LOC: HODSOBC 11:19
PROVIDERS: Supervising Provider Advanced Practice Midwife; Visit Provider Advanced Practice Midwife
DX: O09.893 Supervision of other high risk pregnancies, third trimester (principal); O26.643 Intrahepatic cholestasis of pregnancy, third trimester; Z3A.34 34 weeks gestation of pregnancy; Z88.0 Allergy status to penicillin
CPT/HCPCS: 99214; G0463

== ENCOUNTER 2025-10-25 12:47 | Outpatient (CLI) | payer BC, SELFPAY ==
[2025-10-25] VITALS (10 sets, daily range): BP systolic 117–139; BP diastolic 62–91; PULSE 59–94; RESP 17; O2SAT 100; BMI 30.6
--- NOTE | 2025-10-25 12:55 | XR_ITS ---
Study. Biophysical profile at 1318 hours 25 October 2025. INDICATION: Routine evaluation. No reported pain or problems. Elevated LFTs. TECHNIQUE: Grayscale ultrasound with color flow Doppler transabdominal. FINDINGS: Biophysical profile scores of 2 are awarded for body movement, breathing motion, tone and qualitative amniotic fluid volume. The amniotic fluid index measures 12.9 cm and the heart rate was 135/min. IMPRESSION: Biophysical profile score of 8/8.
--- NOTE | 2025-10-25 12:55 | XR_ITS ---
Study: Obstetric ultrasound equal to or greater than 14 weeks.. INDICATION: Routine evaluation. No reported problems. Elevated LFTs this day. TECHNIQUE: Grayscale ultrasound with color flow Doppler transabdominal. 1309 hours 25 October 2025. Findings: There is a oseguera intrauterine gestation in cephalic presentation showing a four-chamber heart beating at 145/min. The placenta is grade 2 and fundal. There is no subchorionic bleed. Three-vessel umbilical cord is noted. Amniotic fluid index measures 11.2 cm. The stomach, kidneys, bladder and spine are visible. The spine is to the maternal left. Cervical length was not visualized. The ovaries were not visualized. The estimated weight of 251 9 g +/-373 g corresponds with 5 pounds 8 ounces. IMPRESSION: Live intrauterine gestation of 34 weeks 6 days composite age with an estimated due date of 30 November 2025
--- NOTE | 2025-10-25 12:57 | XR_ITS ---
Study: Abdomen ultrasound at 1323 hours 25 October 2025 INDICATION: Elevated LFTs. TECHNIQUE: Grayscale ultrasound with color flow Doppler. FINDINGS: The gallbladder wall measures 0.2 cm and there are no contained stones or sludge. The common bile duct measures 0.3 cm. The liver measures 14.8 cm in the midclavicular head is normally echogenic. There are no cysts, solid masses or ectatic ducts. The portal vein measures 0.9 cm in portal vein flow is toward the liver. The pancreas is normal in size and echogenicity. The inferior vena cava is patent. The aorta is normal in caliber. The right kidney measures 11.2 x 6.0 x 6.2 cm and the cortex measures 1.9 cm. There is mild renal pelvis dilatation. Minimal cortical scarring is evident. There is no cyst, solid mass or stone. The left kidney measures 10.6 x 5.7 x 6.0 cm and the cortex measures 1.7 cm. There is no cyst, solid mass, stone or hydronephrosis. Both kidneys appear normally perfused. There is bilateral retention of lobulations. The spleen measures 12.1 cm and is normal in echogenicity. Impression: no acute diagnostic abnormality.
[2025-10-25 13:44] LABS: Collection Type, Urine Clean Catch; RBC,Urine 0 /hpf (0-3)
[2025-10-25 13:45] LABS: Basophils # (Auto) 0.0 Thou/mm3 (0.0-0.2); Basophils % (Auto) 0 % (0-2.5); Eosinophils # (Auto) 0.0 Thou/mm3 (0.0-0.5); Eosinophils % (Auto) 1 % (0-10); Hematocrit 30.8 % (36.0-46.0); Hemoglobin 9.9 g/dL (12.0-16.0); Immature Granulocytes Auto 0.06 Thou/mm3 (0.00-0.00); Lymphocytes # (Auto) 1.3 Thou/mm3 (1.0-4.8); Lymphocytes % (Auto) 17 % (10-50); Mean Corpuscular HGB Conc 32.1 g/dl (31.0-37.0); Mean Corpuscular Hemoglobin 25.1 pg (25.0-35.0); Mean Corpuscular Volume 78 fL (80-100); Monocytes # (Auto) 0.5 Thou/mm3 (0.0-0.8); Monocytes % (Auto) 6 % (0-12); Neutrophils # (Auto) 5.9 Thou/mm3 (1.8-7.7); Neutrophils % (Auto) 76 % (37-80); Nucleated Red Blood Cell # 0.00 Thou/mm3 (0.00-0.00); Nucleated Red Blood Cell % 0 /100 WBC (0); Platelet Count 260 Thou/mm3 (140-440); RDW Standard Deviation 38.6 fL (36.4-46.3); Red Blood Count 3.95 Miln/mm3 (4.00-5.20); White Blood Count 7.8 Thou/mm3 (3.6-11.0)
[2025-10-25 14:18] LABS: Alanine Aminotransferase 201 U/L (10-49); Albumin, Serum 3.7 gm/dL (3.5-5.0); Albumin/Globulin Ratio 1.5 (1.2-2.2); Alkaline Phosphatase 179 U/L (46-116); Amylase 80 U/L (30-118); Anion Gap 9 (7-16); Aspartate Amino Transferase 116 U/L (0-34); BUN/Creatinine Ratio 8 Ratio (12-20); Bilirubin,Total 0.5 mg/dL (0.3-1.2); Blood Urea Nitrogen < 5 mg/dL (9-23); Calcium 8.7 mg/dL (8.3-10.6); Calcium (Corrected) 8.9 mg/dL (8.5-10.1); Carbon Dioxide 24.9 mMol/L (20.0-31.0); Chloride 109 mMol/L (98-107); Creatinine (Component) 0.6 mg/dL (0.6-1.3); Estimated Creatinine Clearance 142.2 mL/min (>60); Globulin 2.5 gm/dL (2.3-3.5); Glucose 83 mg/dL (74-106); LDH (Lactate Dehydrogenase) 216 U/L (120-246); Lipase 27 U/L (12-53); Osmolality,Calculated 281 (275-295); Potassium 4.4 mMol/L (3.4-5.1); Sodium 143 mMol/L (136-145); Total Protein 6.2 gm/dL (5.7-8.2); Uric Acid 4.7 mg/dL (3.1-7.8); eGFR > 60 See Note
[2025-10-25 14:39] LABS: Bacteria,Urine Rare; Bilirubin,Urine Negative (Negative); Blood,Urine Negative (Negative); Clarity,Urine Turbid (Clear/Hazy); Color,Urine Lt-Yellow (Lt Yel-Yel); Glucose, Urine Negative (Negative); Ketones,Urine Negative (Negative); Leukocyte Esterase,Urine Positive (Negative); Nitrite,Urine Negative (Negative); PH,Urine 7.0 (5.0-7.0); Protein,Urine Negative (Neg - Trace); Specific Gravity,Urine 1.007 (1.001-1.035); Squamous Epithelial Cell,Urine 20 /hpf (0-5); Urobilinogen,Urine Negative mg/dL (0.0-1.0); WBC,Urine 12 /hpf (0-5)
[2025-10-25 14:49] LABS: INR 0.9 (0.9-1.3); Partial Thromboplastin Time 23.6 Seconds (22.0-36.0); Prothrombin Time 9.9 Seconds (9.0-12.2)
[2025-10-25 14:52] LABS: Fibrinogen 679 mg/dL (175-375)
[2025-10-25] MEDS: BETAMET ACET/BETAMET NA PH (Celestone) 6 MG/ML VIAL 12 MG IM (15:43)
[2025-10-25 15:50] LABS: Creatinine,Random Urine 40 mg/dL (30-125); Protein Total, Random Urine 11 mg/dL (1-14)
== END 2025-10-25 16:21 | disposition home or self-care (01) ==
LOC: S4S1 12:48 → S4SX 12:49
PROVIDERS: Referring Provider Obstetrics & Gynecology; Visit Provider Obstetrics & Gynecology
DX: Z34.03 Encounter for supervision of normal first pregnancy, third trimester (principal); Z36.9 Encounter for antenatal screening, unspecified; Z3A.34 34 weeks gestation of pregnancy
CPT/HCPCS: 36415; 59025; 76700; 76805; 76819; 80053; 81001; 82150; 82570; 83615; 83690; 83789; 84156; 84550; 85025; 85384; 85610; 85730; 86635; 87086; J0702

== ENCOUNTER 2025-10-26 15:26 | Outpatient (CLI) | payer BC, SELFPAY ==
[2025-10-26] VITALS (20 sets, daily range): BP systolic 121–135; BP diastolic 72–85; PULSE 79–125; RESP 18–99; TEMP 36.7; O2SAT 89–100; BMI 30.8
[2025-10-26] MEDS: BETAMET ACET/BETAMET NA PH (Celestone) 6 MG/ML VIAL 12 MG IM (16:14)
[2025-10-26 16:48] LABS: Alanine Aminotransferase 184 U/L (10-49); Albumin, Serum 3.7 gm/dL (3.5-5.0); Albumin/Globulin Ratio 1.5 (1.2-2.2); Alkaline Phosphatase 174 U/L (46-116); Anion Gap 12 (7-16); Aspartate Amino Transferase 110 U/L (0-34); BUN/Creatinine Ratio 7 Ratio (12-20); Bilirubin,Total 0.6 mg/dL (0.3-1.2); Blood Urea Nitrogen < 5 mg/dL (9-23); Calcium 8.8 mg/dL (8.3-10.6); Calcium (Corrected) 9.0 mg/dL (8.5-10.1); Carbon Dioxide 23.2 mMol/L (20.0-31.0); Chloride 106 mMol/L (98-107); Creatinine (Component) 0.7 mg/dL (0.6-1.3); Estimated Creatinine Clearance 122.3 mL/min (>60); Globulin 2.4 gm/dL (2.3-3.5); Glucose 110 mg/dL (74-106); Osmolality,Calculated 279 (275-295); Potassium 3.8 mMol/L (3.4-5.1); Sodium 141 mMol/L (136-145); Total Protein 6.1 gm/dL (5.7-8.2); eGFR > 60 See Note
[2025-10-26 17:50] LABS: Hepatitis A Antibody IgM Non Reactive (Non React); Hepatitis B Core Antibody IgM Non Reactive (Non React); Hepatitis B Surface Antigen Non Reactive (Non React); Hepatitis C Antibody Non Reactive (Non React)
[2025-10-27 13:41] LABS: Cocci Serology, IgM Negative (Negative)
[2025-10-28 11:53] LABS: Cocci Serology, IgG Negative (Negative)
== END 2025-10-26 17:11 | disposition home or self-care (01) ==
LOC: S4S1 15:29 → S4SX 15:30
PROVIDERS: Referring Provider Obstetrics & Gynecology; Visit Provider Obstetrics & Gynecology
DX: Z34.03 Encounter for supervision of normal first pregnancy, third trimester (principal); Z36.9 Encounter for antenatal screening, unspecified; Z3A.34 34 weeks gestation of pregnancy
CPT/HCPCS: 36415; 59025; 80053; 80074; 86331; 86635; 96372; J0702